=== PATIENT | female | born 2000 | race Caucasian/White ===

== ENCOUNTER → 2020-05-29 | Outpatient (CLI) | payer BC | END | disposition home or self-care (01) | LOC: LABWHC1 06:59 | PROVIDERS: ATTEND Pediatrics Pediatric Infectious Diseases | DX: Z11.59 Encounter for screening for other viral diseases (principal) ==

== ENCOUNTER → 2020-05-30 | Outpatient (CLI) | payer BC | END | disposition home or self-care (01) | LOC: LABWHC1 10:26 | PROVIDERS: ATTEND Pediatrics Pediatric Infectious Diseases | DX: Z11.59 Encounter for screening for other viral diseases (principal) ==

== ENCOUNTER → 2021-07-19 | Outpatient (CLI) | payer MEDICAID | END | disposition home or self-care (01) | LOC: LABWHC1 15:17 | PROVIDERS: ATTEND Emergency Medicine | DX: Z20.822 Contact with and (suspected) exposure to COVID-19 (principal) | CPT/HCPCS: U0003; C9803; U0005 ==

== ENCOUNTER 2021-09-08 08:38 | Emergency (ER) | payer MEDICAID, OTHER ==
[2021-09-08 08:48] VITALS: RESP 18
--- NOTE | 2021-09-08 09:29 | ED ---
Female Urogenital HPI - General Chief complaint: Vaginal Bleeding Stated complaint: 7Wks Preg/Bleeding/Cramping Time Seen by Provider: 09/08/21 08:53 Source: patient, RN notes reviewed, old records reviewed Mode of arrival: ambulatory Limitations: no limitations - History of Present Illness Initial comments: This is a 21-year-old female, proximally 7 weeks based off of last menstrual period she reports that she was to be seen by Dr. Jean this upcoming week. She reports that she noted to have some light brown vaginal discharge on . She reports that the bleeding has increased in this morning she woke with clots. She reports that she has some abdominal cramping but denies significant abdominal tenderness. Patient states she's had no blood work or testing on this . - Related Data Home Medications Medication Instructions Recorded Confirmed Ovf-Vvrk-Ncghw Acid 1 cap PO DAILY 09/08/21 09/08/21 [-U Capsule (formulary)] Allergies Allergy/AdvReac Type Severity Reaction Status Date / Time No Known Allergies Allergy Verified 09/08/21 12:14 Review of Systems ROS Statement: Those systems with pertinent positive or pertinent negative responses have been documented in the HPI. ROS Other: All systems not noted in ROS Statement are negative. Past Medical History Past Medical History: Asthma History of Any Multi-Drug Resistant Organisms: None Reported Past Surgical History: No Surgical Hx Reported Past Psychological History: No Psychological Hx Reported Smoking Status: Never smoker Past Alcohol Use History: None Reported Past Drug Use History: None Reported General Exam - General Exam Comments Initial Comments: Pleasant 21-year-old female. Alert and oriented. Limitations: no limitations General appearance: alert, in no apparent distress Head exam: Present: atraumatic, normocephalic, normal inspection Eye exam: Present: normal appearance, PERRL, EOMI. Absent: scleral icterus, conjunctival injection, periorbital swelling ENT exam: Present: normal exam, mucous membranes moist Neck exam: Present: normal inspection. Absent: tenderness, meningismus, lymphadenopathy Respiratory exam: Present: normal lung sounds bilaterally. Absent: respiratory distress, wheezes, rales, rhonchi, stridor Cardiovascular Exam: Present: regular rate, normal rhythm, normal heart sounds. Absent: systolic murmur, diastolic murmur, rubs, gallop, clicks GI/Abdominal exam: Present: soft, tenderness (pelvic cramping and llq tenderness), normal bowel sounds. Absent: distended, guarding, rebound, rigid External exam: Present: normal external exam Speculum exam: Present: vaginal bleeding (clots, cervix has active bleeding, not dilated. ). Absent: normal speculum exam By manual exam: Present: normal by manual exam Extremities exam: Present: normal inspection, full ROM, normal capillary refill. Absent: tenderness, pedal edema, joint swelling, calf tenderness Back exam: Present: normal inspection Neurological exam: Present: alert, oriented X3, CN II-XII intact Psychiatric exam: Present: normal affect, normal mood Skin exam: Present: warm, dry, intact, normal color. Absent: rash Course Vital Signs 09/08/21 08:44 Temperature 97.9 F Pulse Rate 76 Respiratory 18 Rate Blood Pressure 115/70 O2 Sat by Pulse 100 Oximetry - Reevaluation(s) Reevaluation #1: 09/08/21 12:[address] Romero, recommendation for Beta HCG on Friday, seeing Dr. Jean on 11am friday. Aware of precaution of ectopic . Medical Decision Making - Medical Decision Making 21-year-old female partially 7 weeks with last menstrual period. She presents with vaginal bleeding and passing clots today. Patient has complaints of abdominal cramping and some minimal tenderness on the left side. She has no guarding or rebound tenderness. Cervical hCG is 987. She is Rh+. Ultrasound shows evidence of the left adnexal mass with no color flow measuring 3.3 x 2.3 x 2.07 m. I reviewed the case with Dr. Ramirez and contacted Dr. Romero. He did come to the emergency department to evaluate this Patient as well. Patient will Follow up with OBGYN on Friday AM, with serum HCG drawn early Friday morning. - Lab Data Lab Results 09/08/21 09/08/21 09/08/21 Range/Units 10:27 10: 10: HCG, Quant 983.9 mIU/mL Urine Color Yellow Urine Appearance Clear (Clear) Urine pH 5.5 (5.0-8.0) Ur Specific [place] 1.010 (1.001-1.035) Urine Protein Negative (Negative) Urine Glucose (UA) Negative (Negative) Urine Ketones Negative (Negative) Urine Blood Large H (Negative) Urine Nitrite Negative (Negative) Urine Bilirubin Negative (Negative) Urine Urobilinogen <2.0 (<2.0) mg/dL Ur Leukocyte Esterase Negative (Negative) Urine RBC 27 H (0-5) /hpf Urine WBC 1 (0-5) /hpf Ur Squamous Epith Cells 1 (0-4) /hpf Urine Bacteria Rare H (None) /hpf Urine Mucus Moderate H (None) /hpf Blood Type A Positive Blood Type Recheck No Previous Record Bld Type Recheck Status ABR ONLY - Radiology Data Radiology results: report reviewed Patient's urinalysis shows red blood cells. Disposition Clinical Impression: Vaginal bleeding during , Left ovarian cyst Disposition: HOME SELF-CARE Condition: Good Instructions (If sedation given, give patient instructions): Threatened Miscarriage (ED) Additional Instructions: Patient advised to avoid any heavy lifting, no intercourse and pelvic rest until being evaluated by Dr. Jean on Friday morning at 11 AM. Patient must repeat your serum hormone early in the morning on Friday. Return to emergency department with any worsening abdominal pain. Is patient prescribed a controlled substance at d/c from ED?: No Referrals: Lainey Handley MD [Primary Care Provider] - 1-2 days Danielle Jean DO [Doctor of Osteopathic Medicine] - 1-2 days Jitendra Uriarte MD [STAFF PHYSICIAN] - 1-2 days Time of Disposition: 12:39
[2021-09-08 11:06] LABS: Appearance,Urine Clear (Clear); Bacteria,Urine Rare /hpf; Bilirubin,Urine Negative (Negative); Blood,Urine Large (Negative); Color,Urine Yellow; Glucose,Urine (UA) Negative (Negative); Ketones,Urine Negative (Negative); Leukocyte Esterase,Urine Negative (Negative); Mucus,Urine Moderate /hpf; Nitrite,Urine Negative (Negative); PH, Urine 5.5 (5.0-8.0); Protein,Urine Negative (Negative); RBC,Urine 27 /hpf (0-5); Squamous Epithelial Cell,Urine 1 /hpf (0-4); Urobilinogen,Urine <2.0 mg/dL (<2.0); WBC,Urine 1 /hpf (0-5)
--- NOTE | 2021-09-08 11:45 | US ---
EXAMINATION TYPE: Transabdominal DATE OF EXAM: 09/08/2021 10:17 AM COMPARISON: Ultrasound 03/05/2017 CLINICAL HISTORY: 7 weeks, left abdominal pain, rule out ectopic . ; Vaginal bleeding with clots, pelvic cramping, especially left side. EXAM PERFORMED: Transvaginal (TV) and Transabdominal (TA), endovaginal scanning performed for better evaluation of the uterus and ovaries EXAM MEASUREMENTS: GESTATIONAL AGE / DATING Physician Established: Not yet established Dates by LMP: (7 weeks/1 day) EDC: 04/26/2022 Dates by First Scan: No previous and this is first scan Dates by Current Scan for: No IUP seen on US MATERNAL ANATOMY Uterus: 7.2 x 4.1 x 2.9cm; complex fluid area noted in JALEESA and cervix = 1.1 x 0.3x 0.1cm and may be b lood related to today's history of vaginal bleeding; endometrial thickness = 0.6cm. Right Ovary: 4.0 x 2.0 x 1.9cm Left Ovary: 4.9 x 2.8 x 2.7cm Post CDS: wnl; Presence of free fluid: no Presence of corpus luteal cyst: in right ovary a thick walled cyst is noted = 1.7 x 1.6 x 0.9cm with periphery hypoechoic to ovary. In larger left ovary an oval thick walled cyst is also noted= 3.3 x 2. 2 x 2.0cm with its periphery isoechoic to left ovary. GESTATION / SURVEY: no IUP is seen; enlarged left ovary with thick walled complex oval mass is noted. Date of LMP: 07/20/2021 Beta HcG (if available): No current lab results available at time of US reporting to radiologist. IMPRESSION: Adnexal mass noted on the left is indeterminate, differential includes ectopic although the re is not significant color flow identified, correlate with beta hCG. Thick-walled cystic right ovari an lesion as described.
[2021-09-08 13:27] VITALS: BP 110/70; PULSE 72; TEMP 97.8
--- NOTE | 2021-09-08 14:21 | P.OBCN ---
History of Present Illness Consult date: 09/08/21 Reason for consult: early problem (Vaginal bleeding, cramping) History of present illness: This patient is a pleasant 21 yr female estimated gestational age ~7wks who presents to ER with complaints of vaginal bleeding that started , but became heavier today. Also began having bad menstrual type cramping. Did pass a large clot this morning and uncertain but may have contained tissue. No pelvic pain otherwise. Bleeding has significantly subsided in ER. Past Medical History Past Medical History: Asthma History of Any Multi-Drug Resistant Organisms: None Reported Past Surgical History: No Surgical Hx Reported Past Psychological History: No Psychological Hx Reported Smoking Status: Never smoker Past Alcohol Use History: None Reported Past Drug Use History: None Reported Medications and Allergies Home Medications Medication Instructions Recorded Confirmed Type Pfw-Yhgx-Rjxgz Acid 1 cap PO DAILY 09/08/21 09/08/21 History [-U Capsule (formulary)] Allergies Allergy/AdvReac Type Severity Reaction Status Date / Time No Known Allergies Allergy Verified 09/08/21 12:14 Exam Vital Signs Temp Pulse Resp BP Pulse Ox 09/08/21 13:25 97.8 F 72 18 110/70 99 09/08/21 08:44 97.9 F 76 18 115/70 100 Intake and Output 09/07/21 09/08/21 09/08/21 22:59 06:59 14:59 Other: Weight 64.864 kg - OBG Physical Exam Abdomen: Exam is limited to her abdomen. Abdomen is soft, non-tender. Results Ultrasound and HCG as above. Abnormal Lab Results - Last 24 Hours (Table) 09/08/21 Range/Units 10:27 Urine Blood Large H (Negative) Urine RBC 27 H (0-5) /hpf Urine Bacteria Rare H (None) /hpf Urine Mucus Moderate H (None) /hpf Assessment and Plan Assessment: Patient was seen and examined. I had a long discussion with Susy and her about her bleeding, ultrasound findings, and [facility] (193). At this point this appears to be a complete vs. ectopic . Her bleeding has subsided and she is having no pain. Ultrasound does not demonstrate any free fluid. 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 I asked her to get a repeat HCG in 48hrs (Friday morning) and will f/u in the office immediately thereafter. If HCG is falling significantly, then could just follow HCGs; if not changing or increasing then would consider MTX at that time. I discussed the signs/symptoms of an ectopic including the risks of bleeding, etc I advised to call me this weekend if any concerns, etc. Patient and were agreeable to this plan. (1) Vaginal bleeding during Status: Acute Code(s): O46.90 - ANTEPARTUM HEMORRHAGE, UNSPECIFIED, UNSPECIFIED TRIMESTER SNOMED Code(s): 64444246573178339
== END 2021-09-08 13:26 | disposition home or self-care (01) ==
LOC: EC 08:38
DX: O20.9 Hemorrhage in early pregnancy, unspecified (principal); O34.81 Maternal care for other abnormalities of pelvic organs, first trimester; N83.202 Unspecified ovarian cyst, left side; Z3A.01 Less than 8 weeks gestation of pregnancy
CPT/HCPCS: 36415; 76801; 76817; 81001; 84702; 86900; 86901; 99284

== ENCOUNTER → 2021-09-10 | Outpatient (CLI) | payer OTHER | END | disposition home or self-care (01) | LOC: LABWHC1 07:46 | PROVIDERS: ATTEND Physician Assistant Medical | DX: O20.0 Threatened abortion (principal); Z3A.00 Weeks of gestation of pregnancy not specified | CPT/HCPCS: 36415; 84702 ==

== ENCOUNTER → 2021-12-06 | Outpatient (CLI) | payer OTHER ==
--- NOTE | 2021-12-06 12:00 | XR ---
EXAMINATION TYPE: XR shoulder complete LT, XR humerus LT DATE OF EXAM: 12/06/2021 CLINICAL HISTORY: Pain and limited range of motion. TECHNIQUE: Three views of the left shoulder are obtained. 2 views left humerus. COMPARISON: None. FINDINGS: There is no acute fracture/dislocation evident in the left shoulder. The acromioclavicula r and glenohumeral joint spaces appear within normal limits. The visualized ribs are intact and unre markable. Overlying bra strap. Images of left humerus show no acute fracture or dislocation. Visualized elbow joint appears within n ormal limits. Overlying Soft tissue is unremarkable. IMPRESSION: Unremarkable studies.
== END | disposition home or self-care (01) ==
LOC: RADXRMAIN 11:31
PROVIDERS: ATTEND Emergency Medicine
DX: M25.512 Pain in left shoulder (principal)

== ENCOUNTER → 2022-05-02 | Outpatient (CLI) | payer MEDICAID ==
--- NOTE | 2022-05-02 09:47 | USB ---
Reason for Exam: Clinical finding. Technique: Method: Targeted. Findings: The area of palpable concern of the left breast was scanned. Finding 1: Mass. Laterality: Left. Palpable Abnormality seen. Size 24 x 15 x 21 mm. 3 O'clock Depth: Middle. 5 cm cm from nipple. Shape: Oval. Margin: Circumscribed (Well-Defined or Sharply-Defined). Overall Assessment: Suspicious, BI-RAD 4 Management: Ultrasound Core Biopsy of the left breast. Oval well-circumscribed 2.4 cm solid mass corresponds to palpable abnormality. Strongly favor benign fibroadenoma, advise tissue sampling to confirm. Electronically signed and approved by: Jv Ames M.D.
== END ==
LOC: WWCWWP 07:54
PROVIDERS: ATTEND Surgery
DX: N63.21 Unspecified lump in the left breast, upper outer quadrant (principal)

== ENCOUNTER → 2022-05-06 | Outpatient (CLI) | payer MEDICAID ==
[2022-05-06 07:50] VITALS: BP 127/78; PULSE 69; RESP 17; TEMP 97.9
--- NOTE | 2022-05-06 08:30 | P.GSHP ---
History of Present Illness H&P Date: 05/06/22 Chief Complaint: mass left breast Susy is a 21 year old white female seen in consultation for Dr. Jean regarding a mass in her left breast. The patient states that it has been present for about 4 months. It is located in the left breast in the periareolar area at approximately 1:00. It is tender and she is uncertain if whether it is increased in size. It is more tender near her menstrual cycle. She had an ultrasound performed which revealed a 2.4 cm solid mass corresponding to the palpable abnormality. Ultrasound core biopsy was recommended. Patient does not feel any other lumps masses or nodules of concern in either breast. She has not had any infection or trauma in the breast. She is not complaining of any nipple discharge or skin changes. She has not had any surgery on her breast. She had a miscarriage in August. She was 8 weeks gesta tional age. Patient has been tested for the BRCA1 gene and is negative as her maternal grandmother carried to [place]. Caffeine: 1 cup/day nicotine: none chocolate: occasional hormones: none BCP: none at this time used them for 4 months about 5 years ago Family history: jason grandmother: uterine cancer; BRCA1 + Hormonal history: Menarche: 9 G1M1 LMP: May 01, 2022; regular BCP: none hormones: none Surgical history: none Medical History: possible polycystic ovarian disease Social History: nicotine: none alcohol: none drugs: none - Constitutional Constitutional: Denies chills, Denies fever - EENT Eyes: denies blurred vision, denies pain Ears: bilateral: tinnitus (occasioncal) Ears, nose, mouth and throat: Denies headache, Denies sore throat - Breasts Breasts: bilateral: as per HPI - Cardiovascular Cardiovascular: Denies chest pain, Denies shortness of breath - Respiratory Respiratory: Denies cough, Denies 7 - Gastrointestinal Gastrointestinal: Denies abdominal pain, Denies diarrhea, Denies nausea, Denies vomiting - Genitourinary (Female) Genitourinary: Denies dysuria, Denies hematuria - Menstruation Menstruation: Reports period normal - Musculoskeletal Musculoskeletal: Denies myalgias - Integumentary Integumentary: Denies pruritus, Denies rash - Neurological Neurological: Denies numbness, Denies weakness - Psychiatric Psychiatric: Denies anxiety, Denies depression - Endocrine Endocrine: Denies fatigue, Denies weight change - Hematologic/Lymphatic Comment: none - Allergic/Immunologic Allergic/Immunologic: Reports as per HPI Past Medical History Past Medical History: Asthma History of Any Multi-Drug Resistant Organisms: None Reported Past Surgical History: No Surgical Hx Reported Past Psychological History: No Psychological Hx Reported Smoking Status: Never smoker Past Alcohol Use History: None Reported Past Drug Use History: None Reported Medications and Allergies Home Medications Medication Instructions Recorded Confirmed Type Zgo-Dvtx-Lmnhk Acid 1 cap PO DAILY 09/08/21 05/06/22 History [-U Capsule (formulary)] Allergies Allergy/AdvReac Type Severity Reaction Status Date / Time No Known Allergies Allergy Verified 09/08/21 12:14 Surgical - Exam Vital Signs Temp Pulse Resp BP Pulse Ox 97.9 F 69 17 127/78 97 05/06/22 07:46 05/06/22 07:46 05/06/22 07:46 05/06/22 07:46 05/06/22 07:46 BMI: 27.5 - General no distress - Eyes normal ocular movement - ENT no hearing loss - Neck trachea midline - Respiratory normal respiratory effort, clear to auscultation - Cardiovascular Rhythm: regular Heart Sounds: normal: S1, S2 - Abdomen Abdomen: soft, non tender, no guarding, no rigid, no rebound - Integumentary normal turgor - Neurologic no disoriented, no combative - Musculoskeletal normal gait, normal posture - Psychiatric oriented to time, oriented to person, oriented to place, speech is normal, memory intact Breast Exam: BRA: 34B inspection: Bilateral grade 1 ptosis Palpation: Right breast: Multi-positional exam fibrocystic changes no dominant masses or nodules of concern Axilla: No adenopathy of concern Left breast: Multiple positional exam approximately 2 cm area of nodularity in the periareolar region approximately 1 to 1:30 in the left breast Left axilla: No adenopathy of concern Results Ultrasound results reviewed from 05-02-22 Assessment and Plan Assessment: Impression: Mass left breast corresponding to ultrasound abnormality Fibrocystic breast changes Family history of BRCA1 gene mother and maternal grandmother are positive Plan: Ultrasound core biopsy lesion left breast Follow-up after ultrasound-guided core biopsy CC: Dr. Jean, DR. Handley
== END ==
LOC: WWCWWP 07:34
PROVIDERS: ATTEND Surgery
DX: N63.21 Unspecified lump in the left breast, upper outer quadrant (principal); N60.11 Diffuse cystic mastopathy of right breast; J45.909 Unspecified asthma, uncomplicated

== ENCOUNTER → 2022-05-14 | Day surgery (SDC) | payer MEDICAID ==
[2022-05-14 07:39] VITALS: BP 98/66; PULSE 56; RESP 16; TEMP 98.5
--- NOTE | 2022-05-17 10:18 | USB ---
Pathology Description: Location: 3 o'clock. Needle Type: Mammotome Cores: 4 Gauge: 13 The procedure of ultrasound guided core biopsy was explained to the patient. Benefits, alternatives, and risks were discussed. An informed consent was then obtained. The patient was placed in supine positioning for imaging and for the procedure. The overlying skin was prepped and draped in usual sterile fashion. Lidocaine was used as anesthetic into the skin and subcutaneous tissue up to area of concern in the 3:00 left breast. Under ultrasound guidance, a 13-gauge vacuum-assisted mammotome Elite biopsy gun was used to obtain 5 core samples. No clip was placed after the biopsies due to patient's age and obvious palpable abnormality. The patient tolerated the procedure well without any immediate complication. The patient was kept in the radiology department for short stay after the procedure and then discharged home in stable condition. Impression: Successful, uncomplicated ultrasound guided core biopsy of the 3:00 left breast palpable mass, suspected fibroadenoma. Full pathology results to follow. Pathology Results: Result: Benign, Fibroadenoma. LEFT BREAST, 3:00 POSITION, CORE BIOPSY: Benign fibroadenoma. Overall Assessment: Benign Management: Surgical Consultation of the left breast. Excision can be considered if symptomatic. Electronically signed and approved by: Gareth Posey M.D. Radiologist
== END ==
LOC: RADUSWWP 07:25
PROVIDERS: ATTEND Surgery
DX: D24.2 Benign neoplasm of left breast (principal)
CPT/HCPCS: 88305

== ENCOUNTER → 2022-05-23 | Outpatient (CLI) | payer MEDICAID ==
[2022-05-23 08:35] VITALS: BP 103/69; PULSE 68; RESP 16; TEMP 98.1
--- NOTE | 2022-05-23 08:49 | P.PN ---
Subjective Progress Note Date: 05/23/22 Principal diagnosis: fibroadenoma left breast Susy is a 21 year old white female seen in consultation for Dr. Jean regarding a mass in her left breast. The patient states that it has been present for about 4 months. It is located in the left breast in the periareolar area at approximately 1:00. It is tender and she is uncertain if whether it is increased in size. It is more tender near her menstrual cycle. She had an ultrasound performed which revealed a 2.4 cm solid mass corresponding to the palpable abnormality. Ultrasound core biopsy was recommended. Patient does not feel any other lumps masses or nodules of concern in either breast. She has not had any infection or trauma in the breast. She is not complaining of any nipple discharge or skin changes. She has not had any surgery on her breast. She had a miscarriage in August. She was 8 weeks g estational age. Patient has been tested for the BRCA1 gene and is negative as her maternal grandmother carried BRCA1 gene, and her mother also carries the BRCA1 gene. She underwent an ultrasound core biopsy of the area on . This was a benign fibroadenoma. She tolerated the procedure without any complications. Caffeine: 1 cup/day nicotine: none chocolate: occasional hormones: none BCP: none at this time used them for 4 months about 5 years ago Family history: patricel grandmother: uterine cancer; BRCA1 + Hormonal history: Menarche: 9 G1M1 LMP: May 01, 2022; regular BCP: none hormones: none Surgical history: none Medical History: possible polycystic ovarian disease Social History: nicotine: none alcohol: none drugs: none - Constitutional Constitutional: Denies chills, Denies fever - EENT Eyes: denies blurred vision, denies pain Ears: bilateral: tinnitus (occasioncal) Ears, nose, mouth and throat: Denies headache, Denies sore throat - Breasts Breasts: bilateral: as per HPI - Cardiovascular Cardiovascular: Denies chest pain, Denies shortness of breath - Respiratory Respiratory: Denies cough - Gastrointestinal Gastrointestinal: Denies abdominal pain, Denies diarrhea, Denies nausea, Denies vomiting - Genitourinary (Female) Genitourinary: Denies dysuria, Denies hematuria - Menstruation Menstruation: Reports period normal - Musculoskeletal Musculoskeletal: Denies myalgias - Integumentary Integumentary: Denies pruritus, Denies rash - Neurological Neurological: Denies numbness, Denies weakness - Psychiatric Psychiatric: Denies anxiety, Denies depression - Endocrine Endocrine: Denies fatigue, Denies weight change - Hematologic/Lymphatic Comment: none - Allergic/Immunologic Allergic/Immunologic: Reports as per HPI Objective - Vital Signs Vital signs: Vital Signs Temp 98.1 F 05/23/22 08:31 Pulse 68 05/23/22 08:31 Resp 16 05/23/22 08:31 BP 103/69 05/23/22 08:31 Pulse Ox 100 05/23/22 08:31 FiO2 Intake & Output 05/22/22 05/23/22 05/23/22 18:59 06:59 18:59 Weight 70.307 kg - Exam BMI 26.6 - Constitutional General appearance: Present: cooperative - EENT Eyes: Present: EOMI ENT: Present: hearing grossly normal - Neck Neck: Present: normal ROM - Respiratory Respiratory: bilateral: CTA - Cardiovascular Rhythm: regular Heart sounds: normal: S1, S2 - Gastrointestinal General gastrointestinal: Present: soft - Integumentary Integumentary Comment(s): mild echymosis left breast at biopsy site - Musculoskeletal Musculoskeletal: Present: gait normal - Psychiatric Psychiatric: Present: A&O x's 3, appropriate affect, intact judgment & insight - Additional findings Additional findings: mass left breast UOQ consistent with a fibroadenoma Assessment and Plan Assessment: Impression: Symptomatic fibroadenoma left breast The lesion is increasing in size, causing anxiety, and painful to palpation Plan: Resection symptomatic fibroadenoma left breast Risks and benefits of the procedure include but are not limited to bleeding, infection, reaction to the anesthetic. The risk of recurrence is also discussed. The patient understands that this is not a cancer however secondary to the increased in size and the symptomatic nature she wishes it to be removed. The patient understands and wishes to proceed. CC: Dr Handley
== END ==
LOC: WWCWWP 08:23
PROVIDERS: ATTEND Surgery
DX: D24.2 Benign neoplasm of left breast (principal); F41.9 Anxiety disorder, unspecified; L98.8 Other specified disorders of the skin and subcutaneous tissue

== ENCOUNTER → 2023-01-01 | Outpatient (CLI) | payer MEDICAID ==
--- NOTE | 2023-01-02 07:42 | US ---
EXAMINATION TYPE: US pelvic complete DATE OF EXAM: 01/01/2023 COMPARISON: 09/08/2021 CLINICAL HISTORY: R10.2 PELVIC AND PERINEAL PAIN. PCOS TECHNIQUE: Transabdominal (TA). Transabdominal sonographic images of the pelvis were acquired. EXAM MEASUREMENTS: Uterus: 8.4 x 2.8 x 4.2 cm Endometrial Stripe: .9 cm Right Ovary: 2.5 x 1.8 x 3.8 cm Left Ovary: 3.1 x 1.7 x 2.7 cm 1. Uterus: Anteverted wnl 2. Endometrium: wnl 3. Right Ovary: follicles are present and peripherally located. Evaluation limited by transabdominal only exam. 4. Left Ovary: follicles are present and peripherally located. Evaluation limited by transabdominal only exam. 5. Bilateral Adnexa: wnl 6. Posterior cul-de-sac: wnl IMPRESSION: 1. No evidence for acute process. 2. Peripherally oriented follicles bilaterally which are suboptimally evaluated on transabdominal on ly imaging. Findings could represent PCOS morphology. Clinical correlation advised.
== END | disposition home or self-care (01) ==
LOC: RADUSWWP 16:14
PROVIDERS: ATTEND Obstetrics & Gynecology
DX: E28.2 Polycystic ovarian syndrome (principal); R10.2 Pelvic and perineal pain
CPT/HCPCS: 76856

== ENCOUNTER → 2023-02-21 | Outpatient (CLI) | payer MEDICAID ==
[2023-02-21 08:52] VITALS: BP 102/65; PULSE 67; RESP 16; TEMP 98.3
--- NOTE | 2023-02-21 09:00 | P.PN ---
Subjective Progress Note Date: 02/21/23 Principal diagnosis: left breast fibroadenoma fibroadenoma left breast Susy is a 22 year old white female seen initially in consultation for Dr. Jean regarding a mass in her left breast. It was located in the left breast in the periareolar area at approximately 1:00. It is tender and she is uncertain if whether it is increased in size. It is more tender near her menstrual cycle. She had an ultrasound performed of the left breast which was limited on , this revealed a 2.4 cm solid mass corresponding to the palpable abnormality. Ultrasound core biopsy was recommended. Patient did not feel any other lumps masses or nodules of concern in either breast. She had not had any infection or trauma in the breast. She was not complaining of any nipple discharge or skin changes. She had not had any surgery on her breast. She had a miscarriage in August,. She was 8 weeks gestational age. Patient has been tested for the BRCA1 gene and is negative as her maternal grandmother carried BRCA1 gene, and her mother also carries the BRCA1 gene. She underwent an ultrasound core biopsy of the area on . This was a benign fibroadenoma. She tolerated the procedure without any complications. She states that the area of the fibroadenoma is very tender to palpation. It gets larger right before her menstrual cycle. Caffeine: 1 cup/day nicotine: none chocolate: occasional hormones: none BCP: none at this time used them for 4 months about 5 years ago Family history: maternal grandmother: uterine cancer; BRCA1 + Hormonal history: Menarche: 9 G1M1 LMP: May 01, 2022; regular BCP: none hormones: none Surgical history: none Medical History: possible polycystic ovarian disease, started metformin Social History: nicotine: none alcohol: none drugs: none - Constitutional Constitutional: Denies chills, Denies fever - EENT Eyes: denies blurred vision, denies pain Ears: bilateral: tinnitus (occasioncal) Ears, nose, mouth and throat: Denies headache, Denies sore throat - Breasts Breasts: bilateral: as per HPI - Cardiovascular Cardiovascular: Denies chest pain, Denies shortness of breath - Respiratory Respiratory: Denies cough - Gastrointestinal Gastrointestinal: Denies abdominal pain, Denies diarrhea, Denies nausea, Denies vomiting - Genitourinary (Female) Genitourinary: Denies dysuria, Denies hematuria - Menstruation Menstruation: Reports period normal - Musculoskeletal Musculoskeletal: Denies myalgias - Integumentary Integumentary: Denies pruritus, Denies rash - Neurological Neurological: Denies numbness, Denies weakness - Psychiatric Psychiatric: Denies anxiety, Denies depression - Endocrine Endocrine: Denies fatigue, Denies weight change - Hematologic/Lymphatic Comment: none - Allergic/Immunologic Allergic/Immunologic: Reports as per HPI Objective - Constitutional General appearance: Present: cooperative - EENT Eyes: Present: EOMI ENT: Present: hearing grossly normal - Neck Neck: Present: normal ROM - Respiratory Respiratory: bilateral: CTA - Cardiovascular Rhythm: regular Heart sounds: normal: S1, S2 - Gastrointestinal General gastrointestinal: Present: soft - Integumentary Integumentary: Present: normal turgor - Musculoskeletal Musculoskeletal: Present: gait normal - Psychiatric Psychiatric: Present: A&O x's 3, appropriate affect, intact judgment & insight - Additional findings Additional findings: Breast Exam: Inspection: Bilateral grade 1 ptosis Palpation: Right breast: Multiple positional exam fibrocystic changes no dominant masses or nodules of concern Right axilla: No adenopathy of concern Left breast: Multiple positional exam approximately 2 cm area of nodularity in the periareolar region 1 to 1:30 in the left breast no other dominant masses or nodules of concern Left axilla: No adenopathy of concern Assessment and Plan Assessment: Impression: symptomatic left breast fibroadenoma Plan: Bilateral breast ultrasound Resection of symptomatic left breast fibroadenoma in the operating room with possible onco-plastic tissue transfer CC: Dr. Handley
== END ==
LOC: WWCWWP 08:37
PROVIDERS: ATTEND Surgery
DX: D24.2 Benign neoplasm of left breast (principal)

== ENCOUNTER → 2023-02-21 | Outpatient (CLI) | payer MEDICAID ==
--- NOTE | 2023-02-21 09:46 | USB ---
Reason for Exam: Hx of benign breast biopsy. Patient History: 05/14/2022, Benign US biopsy breast VAD LT on the left side. Prior Study Comparison: 05/02/2022 Left US breast LT, [facility]. Findings: The whole breast of both breasts, the axilla of both breasts and the retroareolar of both breasts were scanned. Solid mass left 2:00 position is noted measuring 2.6 x 1.8 cm which has been biopsied previously and is consistent with fibroadenoma.. Overall Assessment: Benign, BI-RAD 2 Management: Screening Mammogram of both breasts at age 38. A clinical breast exam by your physician is recommended on an annual basis and results should be correlated with mammographic findings. This exam should not preclude additional follow-up of suspicious palpable abnormalities. Results were given to the patient verbally at the time of exam. Electronically signed and approved by: Leonidas Garcia M.D. Radiologis
== END | disposition home or self-care (01) ==
LOC: RADUSWWP 09:05
PROVIDERS: ATTEND Surgery
DX: R92.8 Other abnormal and inconclusive findings on diagnostic imaging of breast (principal)

== ENCOUNTER → 2023-03-04 | Day surgery (SDC) | payer MEDICAID ==
[2023-03-03 08:27] VITALS: BMI 29.7
[~2023-03-04] MED LIST: DEXAMETHASONE SOD PHOSPHATE 4 MG/ML 1 ML VIAL IV ONE; GLYCOPYRROLATE 0.2 MG/ML 2 ML VIAL ONE; HEPARIN SODIUM,PORCINE/PF 5,000 UNIT/0.5 ML SYRINGE SQ PRN; KETOROLAC 15 MG/ML 1 ML VIAL ONE; LACTATED RINGERS 1,000 ML IV SCH; LIDOCAINE 1% (10MG/ML) FOR IV START INTRADERMA PRN; LIDOCAINE 2% INJ 20 MG/ML (2 ML VIAL) ONE; METOCLOPRAMIDE 5 MG/ML 2 ML VIAL IVP ONE; METOCLOPRAMIDE 5 MG/ML 2 ML VIAL ONE; MIDAZOLAM 2 MG/2 ML VIAL IV PRN; MIDAZOLAM 2 MG/2 ML VIAL ONE; ONDANSETRON 4 MG/2 ML VIAL IVP ONE; ONDANSETRON 4 MG/2 ML VIAL ONE; PROPOFOL 10 MG/ML 20 ML VIAL IV ONE; fentaNYL (PF) 50 MCG/ML 2 ML AMP ONE
[2023-03-04 07:36] VITALS: TEMP 98.2
--- NOTE | 2023-03-04 09:10 | P.OP ---
Date of Procedure: 03/04/23 Preoperative Diagnosis: Symptomatic fibroadenoma left breast Postoperative Diagnosis: Same Procedure(s) Performed: Wide excision symptomatic fibroadenoma left breast Anesthesia: LIBIAA Surgeon: Lucie Santamaria Estimated Blood Loss (ml): 3 IV fluids (ml): 300 Pathology: other (Fibroadenoma/breast tissue) Condition: stable Disposition: same day Indications for Procedure: Symptomatic fibroadenoma left breast Operative Findings: Fibroadenoma left breast/and very dense breast tissue Description of Procedure: The patient was brought to the operating room. Following induction of anesthesia the left breast was prepped and draped in a sterile fashion. An incision was made over the palpable abnormality in the left breast. This was carried down through the skin and subcutaneous tissue to the fibroadenoma. Circumferential resection was performed. The lesion was approximately 2-1/2 cm in size. The breast tissue surrounding this was very dense. The specimen was removed and painted for orientation. The wound was irrigated. Hemostasis was attained using electrocautery device as well as the Harmonic scalpel. A titanium clip was placed at the area of resection. The deep tissues were closed using 3-0 Vicryl suture. The skin was closed using 4-0 Monocryl. Steri-Strips were applied. The patient tolerated the procedure in stable condition.
--- NOTE | 2023-03-04 09:11 | P.DS ---
Providers Attending physician: Lucie Santamaria Primary care physician: Lainey Handley Plan - Discharge Summary Discharge Rx Participant: No New Discharge Prescriptions: No Action Pml-Eyfr-Oqiaq Acid [-U Capsule (formulary)] 1 cap PO DAILY metFORMIN HCL 500 mg PO DAILY Discharge Medication List Buy-Rooa-Xjbjd Acid [-U Capsule (formulary)] 1 cap PO DAILY 09/08/21 [History] metFORMIN HCL 500 mg PO DAILY 02/21/23 [History] Follow up Appointment(s)/Referral(s): Lucie Santamaria MD [STAFF PHYSICIAN] - 03/13/23 8:40 am Activity/Diet/Wound Care/Special Instructions: do not drive for 24 hours from discharge wear bra at all times may shower after 48 hours Discharge Disposition: HOME SELF-CARE
[2023-03-04] MEDS: HYDROmorphone 0.5 MG/0.5 ML SYRINGE IVP PRN ×2 (09:21→09:40)
[2023-03-04 10:10] VITALS: RESP 16
[2023-03-04 11:57] VITALS: BP 118/60; PULSE 59
== END | disposition home or self-care (01) ==
LOC: OR 07:07
PROVIDERS: ATTEND Surgery
DX: D24.2 Benign neoplasm of left breast (principal); J45.909 Unspecified asthma, uncomplicated; Z79.84 Long term (current) use of oral hypoglycemic drugs; Z79.899 Other long term (current) drug therapy
CPT/HCPCS: 81025; 88307; 19120; J2250; J1100; J2765; J0690; J2405; J3010; J1885; J2704; J1170; J1644; J2001

== ENCOUNTER → 2023-03-21 | Outpatient (CLI) | payer MEDICAID ==
--- NOTE | 2023-03-21 08:30 | P.PN ---
Progress Note - Text Progress Note Date: 03/21/23 Susy is a 22 year old white female status post resection of fiboradenoma from the left breast on 4422. She tolerated the procedure without difficulty. Did have some postoperative nausea. Examination: Lungs: Clear Heart: Regular rate and rhythm Incision: Clean and dry Impression: Status post resection fibroadenoma left breast Plan: Left breast ultrasound in 6 months with physician exam at that time CC: Dr. Handley
== END ==
LOC: WWCWWP 08:17
PROVIDERS: ATTEND Surgery
DX: N60.22 Fibroadenosis of left breast (principal)

== ENCOUNTER → 2023-05-12 | Outpatient (CLI) | payer MEDICAID | END | disposition home or self-care (01) | LOC: LABWHC1 11:20 | PROVIDERS: ATTEND Obstetrics & Gynecology | DX: O20.0 Threatened abortion (principal); Z3A.00 Weeks of gestation of pregnancy not specified | CPT/HCPCS: 36415; 84702 ==

== ENCOUNTER → 2023-05-14 | Outpatient (CLI) | payer MEDICAID | END | disposition home or self-care (01) | LOC: LABWHC1 09:18 | PROVIDERS: ATTEND Obstetrics & Gynecology | DX: O20.0 Threatened abortion (principal); Z3A.00 Weeks of gestation of pregnancy not specified | CPT/HCPCS: 36415; 84702 ==

== ENCOUNTER → 2023-05-26 | Outpatient (CLI) | payer MEDICAID ==
--- NOTE | 2023-05-26 10:20 | US ---
EXAMINATION TYPE: Transabdominal DATE OF EXAM: 05/26/2023 10:00 AM COMPARISON: OB ultrasound 09/08/2021, pelvic ultrasound 01/01/2023 CLINICAL INDICATION: Female, 22 years old with history of O46.91 BLEEDING/SPOTTING; confirm dates spo tting EXAM PERFORMED: Transvaginal (TV) and Transabdominal (TA) EXAM MEASUREMENTS: GESTATIONAL AGE / DATING Physician Established: Not yet established Dates by LMP: (6 weeks/5 days) EDC: 01/14/2024 Dates by First Scan: No previous this is first scan Dates by Current Scan for: (6 weeks/1 days) EDC: 01/18/2024 MATERNAL ANATOMY Uterus: 9.2 x 4.2 x 4.7 cm Right Ovary: 4.3 x 2.5 x 3.5 cm Left Ovary: 3.2 x 1.9 x 2.7 cm Post CDS / Adnexa: wnl Presence of free fluid: no Presence of corpus luteal cyst: yes right Presence of subchorionic bleed: yes .4 x .3 x .6 cm. GESTATION / SURVEY CRL: 0.37 cm (6 weeks/1 days) Yolk Sac (normal less than 6mm): 3 mm Heart Rate: 116 bpm Rhythm: Normal IUP: Viable IUP Beta HcG (if available): Not available at this time Single live intrauterine gestation. IMPRESSION: 1. Single live intrauterine gestation with estimated gestational age of 6 weeks 1 day with estimated due date of 01/18/2024. 2. Small subchorionic hemorrhage. Close clinical surveillance is recommended.
== END | disposition home or self-care (01) ==
LOC: RADUSWWP 09:26
PROVIDERS: ATTEND Obstetrics & Gynecology
DX: O20.8 Other hemorrhage in early pregnancy (principal); Z3A.01 Less than 8 weeks gestation of pregnancy
CPT/HCPCS: 76801; 76817

== ENCOUNTER → 2023-06-09 | Outpatient (CLI) | payer MEDICAID ==
[2023-06-10 02:25] LABS: HCT 42.9 % (37.2-46.3); HGB 14.4 d/dL (12.0-15.0); MCH 32.5 pg (27.0-32.0); MCHC 33.6 d/dL (32.0-37.0); MCV 96.8 FL (80.0-97.0); Mean Platelet Volume 11.3 FL (9.5-12.2); NRBC Per 100 WBC 0 X 10*3/uL (0.00-0.01); Platelet Count 249 X 10*3/uL (140-440); RBC 4.43 X 10*6/uL (4.10-5.20); RDW 12.1 % (11.5-14.5); WBC 9.17 X 10*3/uL (4.50-10.00)
[2023-06-10 02:33] LABS: Glucose 72 mg/dL (70-110)
[2023-06-10 02:59] LABS: Hepatitis B Surface Antigen Nonreactive; Hepatitis C IgG Antibody Nonreactive
[2023-06-10 03:39] LABS: HIV 2 AB Non-Reactive (Non-Reactive); HIV AB P24 Non-Reactive (Non-Reactive); HIV P24 AG Non-Reactive (Non-Reactive)
[2023-06-10 05:52] LABS: Toxoplasma Antibody (IgG) <3.0 IU/mL (<7.2); Toxoplasma Antibody (IgM) <3.0 AU/mL (<8.0)
== END | disposition home or self-care (01) ==
LOC: LABWHC1 15:29
PROVIDERS: ATTEND Obstetrics & Gynecology
DX: Z34.81 Encounter for supervision of other normal pregnancy, first trimester (principal); Z3A.00 Weeks of gestation of pregnancy not specified; R53.83 Other fatigue
CPT/HCPCS: 36415; 82565; 82947; 85027; 86762; 86777; 86778; 86780; 86803; 86850; 86900; 86901; 87340; 87390

== ENCOUNTER 2023-06-10 09:55 | Emergency (ER) | payer MEDICAID ==
[2023-06-10 10:10] VITALS: TEMP 98.6
[2023-06-10] MEDS ORDERED: diphenhydrAMINE 50 MG/ML 1 ML VIAL IVP STA (10:27)
[2023-06-10] MEDS ORDERED: METOCLOPRAMIDE 5 MG/ML 2 ML VIAL IVP STA (10:27)
[2023-06-10] MEDS ORDERED: SODIUM CHLORIDE 0.9% 2,000 ML IV STA (10:27)
--- NOTE | 2023-06-10 10:48 | ED ---
General Adult HPI - General Chief complaint: Nausea/Vomiting/Diarrhea Stated complaint: vomiting,9wk preg Time Seen by Provider: 06/10/23 10:26 Source: patient, RN notes reviewed Mode of arrival: ambulatory Limitations: no limitations - History of Present Illness Initial comments: 22-year-old female presents emergency department to complaint of nausea vomiting in . 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 Patient denies any vaginal bleeding abdominal cramping. Patient states that the nausea has been increasing over the last couple weeks. Patient states that her normal ultrasound showing IUP. Patient offers no other complaints. - Related Data Home Medications Medication Instructions Recorded Confirmed Fwl-Dtca-Dkldq Acid 1 cap PO DAILY 09/08/21 03/04/23 [-U Capsule (formulary)] metFORMIN HCL 500 mg PO DAILY 02/21/23 03/04/23 Previous Rx's Medication Instructions Recorded HYDROcodone/APAP 5-325MG [[place] 5] 1 - 2 each PO Q4H PRN #10 tab 03/04/23 Allergies Allergy/AdvReac Type Severity Reaction Status Date / Time No Known Allergies Allergy Verified 06/10/23 10:06 Review of Systems ROS Statement: Those systems with pertinent positive or pertinent negative responses have been documented in the HPI. ROS Other: All systems not noted in ROS Statement are negative. Past Medical History Past Medical History: Asthma History of Any Multi-Drug Resistant Organisms: None Reported Past Surgical History: No Surgical Hx Reported Additional Past Surgical History / Comment(s): left breast lump removal Past Anesthesia/Blood Transfusion Reactions: No Reported Reaction Past Psychological History: No Psychological Hx Reported Smoking Status: Never smoker Past Alcohol Use History: None Reported Past Drug Use History: None Reported General Exam Limitations: no limitations General appearance: alert, in no apparent distress Head exam: Present: atraumatic, normocephalic, normal inspection Respiratory exam: Present: normal lung sounds bilaterally. Absent: respiratory distress, wheezes, rales, rhonchi, stridor Cardiovascular Exam: Present: regular rate, normal rhythm, normal heart sounds. Absent: systolic murmur, diastolic murmur, rubs, gallop, clicks GI/Abdominal exam: Present: soft, normal bowel sounds. Absent: distended, tenderness, guarding, rebound, rigid Course Vital Signs 06/10/23 06/10/23 10:07 12:54 Temperature 98.6 F 98.6 F Pulse Rate 86 81 Respiratory 18 16 Rate Blood Pressure 109/85 117/70 O2 Sat by Pulse 98 100 Oximetry Medical Decision Making - Medical Decision Making Was pt. sent in by a medical professional or institution (, JENARO, DUAL RATE SUPERVISOR, urgent care, hospital, or detention...) When possible be specific @ -No Did you speak to anyone other than the patient for history (EMS, parent, family, police, friend...)? What history was obtained from this source @ -No Did you review nursing and triage notes (agree or disagree)? Why? @ -I reviewed and agree with nursing and triage notes Were old charts reviewed (outside hosp., previous admission, EMS record, old EKG, old radiological studies, urgent care reports/EKG's, detention records)? Report findings @ -No old charts were reviewed Differential Diagnosis (chest pain, altered mental status, abdominal pain women, abdominal pain men, vaginal bleeding, weakness, fever, dyspnea, syncope, headache, dizziness, GI bleed, back pain, seizure, CVA, palpatations, mental health, musculoskeletal)? @ -Nausea vomiting , dehydration, gastroenteritis EKG interpreted by me (3pts min.). @ -As above X-rays interpreted by me (1pt min.). @ -None done CT interpreted by me (1pt min.). @ -None done U/S interpreted by me (1pt. min.). @ -None done What testing was considered but not performed or refused? (CT, X-rays, U/S, labs)? Why? @ -None What meds were considered but not given or refused? Why? @ -None Did you discuss the management of the patient with other professionals (professionals i.e. JENARO Ivy, DUAL RATE SUPERVISOR, lab, RT, psych nurse, hospice social worker, scrap charger, teacher, audit officer, rn case manager)? Give summary @ -No Was smoking cessation discussed for >3mins.? @ -No Was critical care preformed (if so, how long)? @ -No Were there social determinants of health that impacted care today? How? (Homelessness, low income, unemployed, alcoholism, drug addiction, transportation, low edu. Level, literacy, decrease access to med. care, group home, rehab)? @ -No Was there de-escalation of care discussed even if they declined (Discuss DNR or withdrawal of care, Hospice)? DNR status @ -No What co-morbidities impacted this encounter? (DM, HTN, Smoking, COPD, CAD, Cancer, CVA, ARF, Chemo, Hep., AIDS, mental health diagnosis, sleep apnea, morbid obesity)? @ -None Was patient admitted / discharged? Hospital course, mention meds given and route, prescriptions, significant lab abnormalities, going to OR and other pertinent info. @ -Discharge patient is improved after IV fluids and antiemetics patient showed signs of dehydration patient feels comfortable discharge and close follow-up with ELEMENTARY SPECIAL EDUCATION TEACHER. hospital course Undiagnosed new problem with uncertain prognosis? @ -No Drug Therapy requiring intensive monitoring for toxicity (Heparin, Nitro, Insulin, Cardizem)? @ -No Were any procedures done? @ -No Diagnosis/symptom? @ -Nausea vomiting , dehydration Acute, or Chronic, or Acute on Chronic? @ -Acute Uncomplicated (without systemic symptoms) or Complicated (systemic symptoms)? @ -Uncomplicated Side effects of treatment? @ -No Exacerbation, Progression, or Severe Exacerbation? @ -No Poses a threat to life or bodily function? How? (Chest pain, [place], [place], pneumonia, PE, COPD, DKA, ARF, appy, cholecystitis, CVA, Diverticulitis, Homicidal, Suicidal, threat to staff... and all critical care pts) @ -No - Lab Data Result diagrams: 06/10/23 10:33 06/10/23 10:33 Lab Results 06/10/23 06/10/23 06/10/23 Range/Units 10:33 10:33 10:33 WBC 9.0 (3.8-10.6) k/uL RBC 4.39 (3.80-5.40) m/uL Hgb 14.2 (11.4-16.0) gm/dL Hct 42.4 (34.0-46.0) % MCV 96.7 (80.0-100.0) fL MCH 32.4 (25.0-35.0) pg MCHC 33.5 (31.0-37.0) g/dL RDW 12.0 (11.5-15.5) % Plt Count 230 (150-450) k/uL MPV 8.4 Neutrophils % 72 % Lymphocytes % 19 % Monocytes % 6 % Eosinophils % 1 % Basophils % 0 % Neutrophils # 6.5 (1.3-7.7) k/uL Lymphocytes # 1.7 (1.0-4.8) k/uL Monocytes # 0.5 (0-1.0) k/uL Eosinophils # 0.1 (0-0.7) k/uL Basophils # 0.0 (0-0.2) k/uL Sodium 138 (137-145) mmol/L Potassium 4.2 (3.5-5.1) mmol/L Chloride 103 (98-107) mmol/L Carbon Dioxide 19 L (22-30) mmol/L Anion Gap 16 mmol/L BUN 10 (7-17) mg/dL Creatinine 0.48 L (0.52-1.04) mg/dL Est GFR (CKD-EPI)AfAm >90 (>60 ml/min/1.73 sqM) Est GFR (CKD-EPI)NonAf >90 (>60 ml/min/1.73 sqM) Glucose 79 (74-99) mg/dL Calcium 9.6 (8.4-10.2) mg/dL Total Bilirubin 0.7 (0.2-1.3) mg/dL AST 26 (14-36) U/L ALT 16 (4-34) U/L Alkaline Phosphatase 56 (38-126) U/L Total Protein 7.7 (6.3-8.2) g/dL Albumin 4.7 (3.5-5.0) g/dL Urine Color Yellow Urine Appearance Clear (Clear) Urine pH 6.0 (5.0-8.0) Ur Specific [place] 1.031 (1.001-1.035) Urine Protein 1+ H (Negative) Urine Glucose (UA) Negative (Negative) Urine Ketones 4+ H (Negative) Urine Blood Negative (Negative) Urine Nitrite Negative (Negative) Urine Bilirubin Negative (Negative) Urine Urobilinogen 2.0 (<2.0) mg/dL Ur Leukocyte Esterase Negative (Negative) Urine RBC 2 (0-5) /hpf Urine WBC 1 (0-5) /hpf Ur Squamous Epith Cells 4 (0-4) /hpf Urine Bacteria Occasional H (None) /hpf Urine Mucus Moderate H (None) /hpf Disposition Clinical Impression: Nausea/vomiting in Disposition: HOME SELF-CARE Condition: Stable Instructions (If sedation given, give patient instructions): Nausea and Vomiting in (ED) Additional Instructions: Please return to the Emergency Department if symptoms worsen or any other concerns. Is patient prescribed a controlled substance at d/c from ED?: No Referrals: Lainey Handley MD [Primary Care Provider] - 1-2 days Time of Disposition: 12:34
[2023-06-10 10:56] LABS: Basophils % (A) 0 %; Eosinophils # (A) 0.1 k/uL (0-0.7); Eosinophils % (A) 1 %; HCT 42.4 % (34.0-46.0); HGB 14.2 gm/dL (11.4-16.0); Lymphocytes # (A) 1.7 k/uL (1.0-4.8); Lymphocytes % (A) 19 %; MCH 32.4 pg (25.0-35.0); MCHC 33.5 g/dL (31.0-37.0); MCV 96.7 fL (80.0-100.0); Mean Platelet Volume 8.4; Monocytes # (A) 0.5 k/uL (0-1.0); Monocytes % (A) 6 %; Neutrophils # (A) 6.5 k/uL (1.3-7.7); Neutrophils % (A) 72 %; Platelet Count 230 k/uL (150-450); RBC 4.39 m/uL (3.80-5.40)
[2023-06-10 11:23] LABS: ALT 16 U/L (4-34); AST 26 U/L (14-36); African American GFR (CKD) >90 (>60 ml/min/1.73 sqM); Albumin 4.7 g/dL (3.5-5.0); Alkaline Phosphatase 56 U/L (38-126); Anion Gap 16 mmol/L; Blood Urea Nitrogen 10 mg/dL (7-17); Calcium 9.6 mg/dL (8.4-10.2); Carbon Dioxide 19 mmol/L (22-30); Chloride 103 mmol/L (98-107); Glucose 79 mg/dL (74-99); Non-African American GFR(CKD) >90 (>60 ml/min/1.73 sqM); Potassium 4.2 mmol/L (3.5-5.1); Sodium 138 mmol/L (137-145); Total Bilirubin 0.7 mg/dL (0.2-1.3); Total Protein 7.7 g/dL (6.3-8.2)
[2023-06-10 12:33] LABS: Appearance,Urine Clear (Clear); Bacteria,Urine Occasional /hpf; Bilirubin,Urine Negative (Negative); Blood,Urine Negative (Negative); Color,Urine Yellow; Glucose,Urine (UA) Negative (Negative); Ketones,Urine 4+ (Negative); Leukocyte Esterase,Urine Negative (Negative); Mucus,Urine Moderate /hpf; Nitrite,Urine Negative (Negative); Protein,Urine 1+ (Negative); RBC,Urine 2 /hpf (0-5); Specific Gravity,Urine 1.031 (1.001-1.035); Squamous Epithelial Cell,Urine 4 /hpf (0-4); WBC,Urine 1 /hpf (0-5)
[2023-06-10 12:55] VITALS: BP 117/70; PULSE 81; RESP 16
== END 2023-06-10 12:55 | disposition home or self-care (01) ==
LOC: EC 09:55
DX: O21.9 Vomiting of pregnancy, unspecified (principal); O99.281 Endocrine, nutritional and metabolic diseases complicating pregnancy, first trimester; E86.0 Dehydration; O99.511 Diseases of the respiratory system complicating pregnancy, first trimester; J45.909 Unspecified asthma, uncomplicated; Z3A.09 9 weeks gestation of pregnancy
CPT/HCPCS: 36415; 80053; 85025; 81001; 99284; 96374; 96375; 96361; J1200; J2765

== ENCOUNTER → 2023-06-12 | Outpatient (CLI) | payer MEDICAID ==
--- NOTE | 2023-06-12 20:00 | US ---
EXAMINATION TYPE: Ultrasound OB <= 14 week fetus DATE OF EXAM: 06/12/2023 2:20 PM COMPARISON: NONE CLINICAL INDICATION: Female, 22 years old with history of O46.91 ANTEPARTUM HEMORRHAGE, UNSPECIFIED, FIRST T; small subchorionic bleed EXAM PERFORMED: Transabdominal (TA) EXAM MEASUREMENTS: GESTATIONAL AGE / DATING Physician Established: (8 weeks/4 days) EDC: 01/18/2024 Dates by LMP: (8 weeks/4 days) EDC: 01/18/2024 Dates by First Scan: (6 weeks/5 days) EDC: 01/14/2024 Dates by Current Scan for: (7 weeks/5 days) EDC: 01/24/2024 MATERNAL ANATOMY Uterus: 12.2 x 4.8 x 6.1cm Right Ovary: 2.9 x 2.5 x 2.5 cm Left Ovary: 2.5 x 1.9 x 2.4 cm Post CDS / Adnexa: wnl Presence of free fluid: no Presence of corpus luteal cyst: no Presence of subchorionic bleed: small area .7 x .6 cm. GESTATION / SURVEY CRL: 1.3 cm (7 weeks/5 days) Yolk Sac (normal less than 6mm): 4 mm Heart Rate: 163 bpm Rhythm: normal IUP: single IMPRESSION: 1. A small perigestational bleed is similar to slightly larger at 7 x 6 mm versus 6 x 4 mm, previousl y. 2. Single live intrauterine with gestational age of 7 weeks 5 days by CRL. 6 days less grow th than expected compared to 05/26/2023. On a short-term follow-up can be considered. 3. Complete survey recommended at 18-20 weeks.
== END | disposition home or self-care (01) ==
LOC: RADUSWWP 13:29
PROVIDERS: ATTEND Obstetrics & Gynecology
DX: O46.91 Antepartum hemorrhage, unspecified, first trimester (principal); Z3A.01 Less than 8 weeks gestation of pregnancy
CPT/HCPCS: 76801

== ENCOUNTER → 2023-08-20 | Outpatient (CLI) | payer MEDICAID ==
--- NOTE | 2023-08-20 20:16 | US ---
EXAMINATION TYPE: US OB >= 14 wk fetus DATE OF EXAM: 08/20/2023 COMPARISON: 06/12/2023 CLINICAL INDICATION: Female, 22 years old with history of O36.67E0KOLVHGWA CARE FOR EXCESS GROW TH, SEC; growth, A1 TECHNIQUE: OBTA GESTATIONAL AGE / DATING Physician Established: (19 weeks/0 days) EDC: 01/14/2024 Dates by LMP: (18 weeks/3 days) EDC: 01/18/2024 Dates by First Scan: (19 weeks/0 days) EDC: 01/14/2024 Dates by Current Scan: (19 weeks/1 days) EDC: 01/13/2024 SURVEY IUP: Single PLACENTA: Posterior-fundal PREVIA: No Previa BON: 17.2 cm Normal CERVICAL LENGTH (transabdominal: norm > 3.0cm): 3.9 cm BIOMETRY PRESENTATION: Vertex LIE: Longitudinal BPD: 4.3 cm 19 weeks / 1 days HC: 16.2 cm 19 weeks / 0 days AC: 14.9 cm 20 weeks / 2 days FL: 2.6 cm 18 weeks / 0 days ESTIMATED WEIGHT IN GRAMS: 274 grams ESTIMATED WEIGHT IN LBS/OZ: 0 lbs. 10 oz. WEIGHT PERCENTAGE BASED ON ESTABLISHED DATES: 51% HC/AC: 1.1 Normal FL/AC: 17 Normal HEART RATE: 142 bpm RHYTHM: Normal IMPRESSION: Single live intrauterine gestation with ultrasound age 19 weeks 1 day. Additional information as desc ribed above.
== END | disposition home or self-care (01) ==
LOC: RADUSWWP 16:07
PROVIDERS: ATTEND Obstetrics & Gynecology
DX: O36.62X0 Maternal care for excessive fetal growth, second trimester, not applicable or unspecified (principal); Z3A.19 19 weeks gestation of pregnancy
CPT/HCPCS: 76805

== ENCOUNTER → 2023-09-16 | Outpatient (CLI) | payer MEDICAID ==
--- NOTE | 2023-09-17 07:39 | US ---
EXAMINATION TYPE: US OB anatomy transabd DATE OF EXAM: 09/16/2023 COMPARISON: NONE CLINICAL INDICATION: Female, 23 years old with history of O36.62X0; ANATOMY EXAM, G1 TECHNIQUE: OBTA EXAM MEASUREMENTS: GESTATIONAL AGE / DATING Physician Established: (22 weeks/1 days) EDC: 01/14/2024 Dates by LMP: (22 weeks/1 days) EDC: 01/14/2024 Dates by First Scan: (22 weeks/2 days) EDC: 01/18/2024 Dates by Current Scan for: (22 weeks/1 days) EDC: 01/19/2024 SURVEY IUP: Single PLACENTA: Fundal PREVIA: No previa BON: 14.4 cm Normal CERVICAL LENGTH (transabdominal: norm > 3.0cm): 3.9 cm BIOMETRY PRESENTATION: Variable LIE: Transverse lie with head maternal R BPD: 5.3 cm 22 weeks / 2 days HC: 19.1 cm 21 weeks / 3 days AC: 17.8 cm 22 weeks / 5 days FL: 3.8 cm 22 weeks / 1 days ESTIMATED WEIGHT IN GRAMS: 490 grams ESTIMATED WEIGHT IN LBS/OZ: 1 lbs. 1 oz. WEIGHT PERCENTAGE BASED ON ESTABLISHED DATE: 18 % HC/AC: 1.0 Normal FL/AC: 21 Normal HEART RATE: 143 bpm RHYTHM: Normal ANATOMY SEEN (within normal limits): * Lateral Vent (< 1 cm) 0.4 cm * Cisterna Magna (< 1.1 cm) 0.3 cm * Nuchal Fold (< 0.6 cm) 0.3 cm * Cerebellum (varies with age) 25.2 cm Choroid Plexus (bilateral) Midline Falx Cavus Septi Pellucidi Outflow tracts: LVOT/RVOT Stomach Situs Nose / Lips Diaphragm Kidneys (bilateral) Bladder Cord Insert Three Vessel Cord Arms (bilateral) Legs (bilateral) ANATOMY NOT SEEN: Patient will return within 2 weeks to complete anatomy Four Chamber Heart Longitudinal Spine Transverse Spine IMPRESSION: Single viable intrauterine . Limited anatomy as noted above.
== END | disposition home or self-care (01) ==
LOC: RADUSWWP 16:10
PROVIDERS: ATTEND Obstetrics & Gynecology
DX: O36.62X0 Maternal care for excessive fetal growth, second trimester, not applicable or unspecified (principal); Z3A.22 22 weeks gestation of pregnancy
CPT/HCPCS: 76811

== ENCOUNTER → 2023-10-01 | Outpatient (CLI) | payer MEDICAID ==
[2023-10-01 16:24] LABS: HGB 11.9 d/dL (12.0-15.0); MCHC 33.1 d/dL (32.0-37.0); MCV 99.7 FL (80.0-97.0); Mean Platelet Volume 11.4 FL (9.5-12.2); NRBC Per 100 WBC 0 X 10*3/uL (0.00-0.01); Platelet Count 224 X 10*3/uL (140-440); RBC 3.61 X 10*6/uL (4.10-5.20); RDW 13.6 % (11.5-14.5); WBC 7.72 X 10*3/uL (4.50-10.00)
== END | disposition home or self-care (01) ==
LOC: LABWHC1 09:00
PROVIDERS: ATTEND Obstetrics & Gynecology
DX: Z34.82 Encounter for supervision of other normal pregnancy, second trimester (principal); Z3A.00 Weeks of gestation of pregnancy not specified
CPT/HCPCS: 36415; 82950; 85027

== ENCOUNTER → 2023-10-07 | Outpatient (CLI) | payer MEDICAID | END | disposition home or self-care (01) | LOC: LABWHC1 08:17 | PROVIDERS: ATTEND Obstetrics & Gynecology | DX: O24.419 Gestational diabetes mellitus in pregnancy, unspecified control (principal); Z3A.00 Weeks of gestation of pregnancy not specified | CPT/HCPCS: 36415; 82951; 82952 ==

== ENCOUNTER → 2023-12-10 | Outpatient (CLI) | payer MEDICAID ==
--- NOTE | 2023-12-10 18:11 | US ---
EXAMINATION TYPE: US OB >= 14 wk fetus DATE OF EXAM: 12/10/2023 COMPARISON: None CLINICAL INDICATION: Female, 23 years old with history of O36.63X0 MATERNAL CARE FOR EXCESS TONI WH; TECHNIQUE: Transabdominal (TA) GESTATIONAL AGE / DATING Physician Established: (35 weeks/0 days) EDC: 01/14/24 Dates by First Scan: ( weeks/ days) EDC: Dates by Current Scan: (34 weeks/0 days) EDC: 01/21/24 Beta HCG (if available): Not available at this time SURVEY IUP: Single PLACENTA: Fundal PREVIA: No Previa BON: 14.0 cm Normal CERVICAL LENGTH (transabdominal: norm > 3.0cm): 3.15 cm BIOMETRY PRESENTATION: Breech LIE: Oblique BPD: 8.64 cm 34 weeks / 6 days HC: 28.84 cm 31 weeks / 6 days AC: 31.05 cm 35 weeks / 0 days FL: 6.65 cm 34 weeks / 2 days ESTIMATED WEIGHT IN GRAMS: 2423 grams ESTIMATED WEIGHT IN LBS/OZ: 5 lbs. 5 oz. WEIGHT PERCENTAGE BASED ON ESTABLISHED DATES: 30% HC/AC: 0.93 Normal FL/AC: 21 Normal HEART RATE: 153 bpm RHYTHM: Normal IMPRESSION: 1. Single intrauterine gestation estimated at 34 weeks 0 days gestation based on current ultrasound m easurements. Cardiac activity measures 153 bpm. Estimated weight is 2423 g.
== END | disposition home or self-care (01) ==
LOC: RADUSWWP 15:23
PROVIDERS: ATTEND Obstetrics & Gynecology
DX: O36.63X0 Maternal care for excessive fetal growth, third trimester, not applicable or unspecified (principal); Z3A.34 34 weeks gestation of pregnancy
CPT/HCPCS: 76805

== ENCOUNTER → 2023-12-17 | Outpatient (CLI) | payer MEDICAID ==
--- NOTE | 2023-12-17 14:04 | US ---
EXAMINATION TYPE: US OB >= 14 wk fetus DATE OF EXAM: 12/17/2023 COMPARISON: None CLINICAL INDICATION: Female, 23 years old with history of O32.1XX0 MATERNAL CARE FOR BREECH PRESENTAT ION, UN; 36 week growth and positioning, baby has been breech TECHNIQUE: OBTA GESTATIONAL AGE / DATING Physician Established: (36 weeks/0 days) EDC: 01/14/2024 Dates by LMP: (36 weeks/0 days) EDC: 01/14/2024 Dates by First Scan: (35 weeks/3 days) EDC: 01/18/2024 Dates by Current Scan: (34 weeks/5 days) EDC: 01/23/2024 SURVEY IUP: Single PLACENTA: anterior-fundal PREVIA: No Previa BON: 20.1 cm Normal CERVICAL LENGTH (transabdominal: norm > 3.0cm): 3.3 cm BIOMETRY PRESENTATION: Breech LIE: Longitudinal BPD: 8.5 cm 34 weeks / 3 days HC: 30.9 cm 34 weeks / 5 days AC: 32.5 cm 36 weeks / 4 days FL: 6.4 cm 33 weeks / 0 days ESTIMATED WEIGHT IN GRAMS: 2604 grams ESTIMATED WEIGHT IN LBS/OZ: 5 lbs. 12 oz. WEIGHT PERCENTAGE BASED ON ESTABLISHED DATES: 28% (versus 30% on 12/10/2023) HC/AC: 0.9 Normal FL/AC: 20 Normal HEART RATE: 155 bpm RHYTHM: Normal IMPRESSION: 1. Single live intrauterine with estimated gestational age of 36 weeks [address] [facility] smaller but concordant at 34 weeks 5 days. [address] the child a t the 28th percentile for weight (versus 30% on 12/10/2023). 2. BON at the upper limits of normal at 20.1 cm. Follow-up as clinically indicated. 3. Breech presentation. Anterior placenta. No placenta previa.
== END | disposition home or self-care (01) ==
LOC: RADUSWWP 10:12
PROVIDERS: ATTEND Obstetrics & Gynecology
DX: O32.1XX0 Maternal care for breech presentation, not applicable or unspecified (principal); Z3A.36 36 weeks gestation of pregnancy
CPT/HCPCS: 76805

== ENCOUNTER 2023-12-28 21:16 | Outpatient (CLI) | payer MEDICAID ==
[2023-12-28 23:38] VITALS: BP 121/67; PULSE 82; RESP 16; TEMP 97.7
--- NOTE | 2024-01-02 02:55 | P.MSEPDOC ---
Presenting Problems - Arrival Data Date of Arrival on Unit: 12/28/23 Time of Arrival on Unit: 21:16 Mode of Transport: Wheelchair - Complaint OB-Reason for Admission/Chief Complaint: Possible Onset of Labor Comment: pt arrives to triage for contractions about 5 mins apart at home. Medical History - Information : 2 Para: 0 Term: 0 : 0 Abortions: Spontaneous or Elective: 0 Number of Living Children: 0 - Gestational Age Gestational Age by CASSIUS (wks/days): 37 Weeks and 4 Days Review of Systems - Review of Systems Constitutional: No problems Breast: No problems ENT: No problems Cardiovascular: No problems Respiratory: No problems Gastrointestinal: No problems Genitourinary: No problems Musculoskeletal: No problems Neurological: No problems Skin: No problems Vital Signs - Temperature Temperature: 97.7 F Temperature Source: Oral - Pulse Pulse Oximetery Pulse Rate: 82 Pulse Assessment Method: Pulse Oximetry - Respirations Respiratory Rate: 16 Oxygen Delivery Method: Room Air O2 Sat by Pulse Oximetry: 96 - Blood Pressure Right Arm Blood Pressure: 121/67 Blood Pressure Mean: 85 Blood Pressure Source: Automatic Cuff Medical Screen Scoring - Cervical Exam Dilation (cm): 1 Membranes: Intact - Uterine Contractions Frequency From (mins): 5 Frequency To (mins): 8 Duration From (seconds): 40 Duration To (seconds): 60 Intensity: Mild Resting: Soft to palpation - Assessment - Baby A Baseline FHR: 140 Heart Rate - NICHD Category: Category I (Normal) NST: Reactive Physician Notification - Physician Notified Physician Notified Date: 12/28/23 Physician Notified Time: 22:38 Physician: Danielle Jean Order Received: Yes (d/c pt home) Maternal Triage Index - Maternal Triage Index Presenting for scheduled procedure w/no complaint: No - Stat/Priority 1 Stat Priority 1: No - Urgent/Priority 2 Urgent Priority 2: No - Prompt/Priority 3 Prompt Priority 3: No - Non-Urgent/Priority 4 Non-Urgent Priority 4: Yes Criteria Met for Priority 4: pt complaining of contractions. states baby is breech. SVE and no change within an hour Disposition - Disposition OB Disposition: Discharge to home Discharge Date: 12/28/23 Discharge Time: 22:45 I agree with the RN Medical Screening Exam: Yes Case reviewed; plan agreed upon as documented in EMR&OBIX.: Yes Diagnosis: FALSE LABOR AT OR AFTER 37 COMPLETED WEEKS OF GESTATION
== END 2023-12-28 22:45 ==
LOC: FBPOP 21:16
PROVIDERS: ATTEND Obstetrics & Gynecology
DX: O47.1 False labor at or after 37 completed weeks of gestation (principal); Z3A.37 37 weeks gestation of pregnancy
CPT/HCPCS: 59025; 99213

== ENCOUNTER → 2024-01-02 | Outpatient (CLI) | payer MEDICAID ==
--- NOTE | 2024-01-02 17:18 | US ---
EXAMINATION TYPE: US OB >= 14 wk fetus DATE OF EXAM: 01/02/2024 COMPARISON: 12/17/2023 CLINICAL INDICATION: Female, 23 years old with history of O32.1XX2 MATERNAL CARE FOR BREECH PRESENTAT ION, FE; Growth ultrasound, position TECHNIQUE: Transabdominal (TA) GESTATIONAL AGE / DATING Physician Established: Not yet established Dates by LMP: (38 weeks/2 days) EDC: 01/14/2024 Dates by First Scan: (38 weeks/2 days) EDC: 01/14/2024 Dates by Current Scan: (35 weeks/4 days) EDC: 02/02/2024 SURVEY IUP: Single PLACENTA: Fundal PREVIA: No Previa BON: 9.8 cm Normal CERVICAL LENGTH (transabdominal: norm > 3.0cm): Unable to visualize due to size and position BIOMETRY PRESENTATION: Breech LIE: Longitudinal BPD: 8.8 cm 35 weeks / 3 days HC: 31.3 cm 35 weeks / 1 days AC: 33.0 cm 37 weeks / 0 days FL: 6.7 cm 34 weeks / 4 days ESTIMATED WEIGHT IN GRAMS: 2806 grams ESTIMATED WEIGHT IN LBS/OZ: 6 lbs. 3 oz. WEIGHT PERCENTAGE BASED ON ESTABLISHED DATES: % HC/AC: 0.95 Normal FL/AC: 77% Normal HEART RATE: 142 bpm RHYTHM: Normal IMPRESSION: Single viable intrauterine in breech presentation.
== END | disposition home or self-care (01) ==
LOC: RADUSWWP 14:48
PROVIDERS: ATTEND Obstetrics & Gynecology
DX: O32.1XX0 Maternal care for breech presentation, not applicable or unspecified (principal); Z3A.39 39 weeks gestation of pregnancy
CPT/HCPCS: 76805

== ENCOUNTER 2024-01-09 05:50 | Inpatient (IN) | payer MEDICAID, BC ==
--- NOTE | 2024-01-08 20:02 | P.HPOB ---
History of Present Illness H&P Date: 01/08/24 Chief Complaint: Breech presentation This is a 23-year-old female 2 para 0 with an estimated date of confinement of 01/14/2024, estimated gestational age of 39-2/7 weeks, who presents to labor and delivery for scheduled primary section due to breech presentation. Her last ultrasound on January 02 showed a fetus in the breech presentation with an estimated weight of 6 pounds 3 ounces or 77th percentile and amniotic fluid index of 9.6 cm. She admits to good movement and does feel irregular contractions. course has been complicated by hyperemesis at the beginning of her and she has continued with nausea and vomiting throughout her but it has been fairly well-controlled with daily Reglan and Zofran currently. She did also have an elevated 1 hour Glucola but she checked her sugars with a glucose monitor for a couple weeks and all of her levels were within normal range. labs: Toxoplasma-negative Random glucose-72 Hemoglobin-14.4 Hepatitis B surface antigen-nonreactive Hepatitis C antibody-nonreactive Rubella-immune Syphilis antibody-nonreactive HIV-nonreactive Trichomonas-negative Blood type-A+ Antibody screen-negative 1 hour Glucola-157 Group B streptococcus-negative Obstetrical history: G2, P0. History of 1 miscarriage. Gynecologic history: No history of sexually transmitted diseases. Social history: She is . She works as a RN in the emergency room. Review of Systems Constitutional: Denies chills, Denies fever Eyes: denies blurred vision, denies pain Ears, nose, mouth and throat: Denies headache, Denies sore throat Cardiovascular: Denies chest pain, Denies shortness of breath Gastrointestinal: Reports abdominal pain (Irregular contractions), Reports nausea Genitourinary: Reports pelvic pain, Reports Musculoskeletal: Reports low back pain Integumentary: Denies pruritus, Denies rash Neurological: Denies numbness, Denies weakness Psychiatric: Denies anxiety, Denies depression Past Medical History Past Medical History: Asthma, GERD/Reflux Additional Past Medical History / Comment(s): PCOS- has not used metformin > 5 months, nausea with pregancy, mild lower leg swelling History of Any Multi-Drug Resistant Organisms: None Reported Past Surgical History: No Surgical Hx Reported Additional Past Surgical History / Comment(s): left breast lump removal, wisdom teeth removed Past Anesthesia/Blood Transfusion Reactions: Postoperative Nausea & Vomiting (PONV) Past Psychological History: No Psychological Hx Reported Smoking Status: Never smoker Past Alcohol Use History: None Reported Past Drug Use History: None Reported - Past Family History Mother Family Medical History: Hypertension Medications and Allergies Home Medications Medication Instructions Recorded Confirmed Type Metoclopramide [Reglan] 10 mg PO DAILY 06/16/23 01/08/24 History Ondansetron [Zofran] 4 mg PO DAILY 12/28/23 01/02/24 History Vit No.179/Iron/Folic 1 tab PO DAILY 12/28/23 01/02/24 History [ Tablet] Otc Tums 1 tab PO DIRECTED PRN 01/02/24 01/02/24 History Unk Albuterol Inhaler 1 puff INHALATION DIRECTED PRN 01/02/24 01/02/24 History Allergies Allergy/AdvReac Type Severity Reaction Status Date / Time No Known Allergies Allergy Verified 01/02/24 15:41 Exam Osteopathic Statement: *. No significant issues noted on an osteopathic structural exam other than those noted in the History and Physical/Consult. HEENT: Within normal limits Heart: Regular rate and rhythm Lungs: Clear to auscultation bilaterally Abdomen: Cervix: 1-1/2 cm / 60%/-1 station heart tones: 140s by Doppler Extremities: Negative Homans Assessment and Plan (1) 39 weeks gestation of Status: Acute Code(s): Z3A.39 - 39 WEEKS GESTATION OF SNOMED Code(s): 99104086 (2) Breech presentation Status: Acute Code(s): O32.1XX0 - MATERNAL CARE FOR BREECH PRESENTATION, UNSP SNOMED Code(s): 8576690 Plan: Proceed with primary low-transverse section. I have discussed the risks, benefits, and alternative therapies for the above- mentioned procedure and for both sedation/anesthesia as well as necessary blood products administration, if indicated, as they pertain to this patient. The patient has indicated her understanding and acceptance of the risks and procedures discussed.
[2024-01-09] MEDS ORDERED: LIDOCAINE 1% (10MG/ML) FOR IV START INTRADERMA PRN (06:13)
[2024-01-09] MEDS ORDERED: miSOPROStoL 200 MCG TAB PO PRN (06:13)
[2024-01-09] MEDS ORDERED: TRANEXAMIC 1,000 MG/100ML-NACL 1,000 MG in EMPTY BAG 1 BAG IV PRN (06:13)
[2024-01-09] MEDS ORDERED: METHYLERGONOVINE 0.2 MG/ML 1 ML AMP IM PRN (06:13)
[2024-01-09] MEDS ORDERED: OXYTOCIN 10 UNIT/ML 1 ML VIAL IM PRN (06:13)
[2024-01-09] MEDS ORDERED: CARBOPROST TROMETHAMINE 250 MCG/ML 1 ML AMP IM PRN (06:13)
[2024-01-09 06:32] LABS: Basophils % (A) 0 %; Eosinophils # (A) 0.2 k/uL (0-0.7); Eosinophils % (A) 1 %; HCT 36.3 % (34.0-46.0); HGB 12.4 gm/dL (11.4-16.0); Lymphocytes # (A) 2.2 k/uL (1.0-4.8); Lymphocytes % (A) 19 %; MCH 33.5 pg (25.0-35.0); MCHC 34.1 g/dL (31.0-37.0); MCV 98.3 fL (80.0-100.0); Mean Platelet Volume 9.3; Monocytes # (A) 0.6 k/uL (0-1.0); Monocytes % (A) 5 %; Neutrophils # (A) 8.7 k/uL (1.3-7.7); Neutrophils % (A) 73 %; Platelet Count 177 k/uL (150-450); RBC 3.69 m/uL (3.80-5.40); WBC 11.9 k/uL (3.8-10.6)
[2024-01-09] MEDS: LACTATED RINGERS 1,000 ML IV SCH (06:44)
[2024-01-09] MEDS: CITRIC ACID-SODIUM CITRATE 15 ML CUP PO ONE (07:11)
[2024-01-09] MEDS: LACTATED RINGERS 1,000 ML IV ONE (07:13)
[2024-01-09] MEDS ORDERED: OXYTOCIN 30 UNITS/500 ML NS BAG IV ONE (07:55)
[2024-01-09] MEDS ORDERED: PHENYLEPHRINE 10 MG/ML VIAL ONE (07:55)
[2024-01-09] MEDS ORDERED: KETOROLAC 15 MG/ML 1 ML VIAL ONE (07:55)
[2024-01-09] MEDS ORDERED: ONDANSETRON 4 MG/2 ML VIAL ONE (07:55)
[2024-01-09] MEDS ORDERED: MORPHINE SULFATE (PF) 0.3 MG/0.3 ML SYR ONE (07:55)
--- NOTE | 2024-01-09 08:37 | P.OP ---
Date of Procedure: 01/09/24 Preoperative Diagnosis: 1. Intrauterine at 39-2/7 weeks. 2. Breech presentation. Postoperative Diagnosis: Same Procedure(s) Performed: Primary low transverse section Anesthesia: spinal (Duramorph) Surgeon: Danielle Jean Steel Fixer #1: Jitendra Uriarte Estimated Blood Loss (ml): 400 Pathology: none sent Condition: stable Disposition: floor Indications for Procedure: This is a 23-year-old female 2 para 0 at 39-2/7 weeks who presented for primary section due to breech presentation. I have discussed the risks, benefits, and alternative therapies for the above- mentioned procedure and for both sedation/anesthesia as well as necessary blood products administration, if indicated, as they pertain to this patient. The patient has indicated her understanding and acceptance of the risks and procedures discussed. Operative Findings: A viable female is noted in the footling breech presentation with scores of 9 at 1 minute and 9 at 5 minutes and weight of 6 lbs. 10 oz. N ormal uterus tubes and ovaries are noted. Description of Procedure: The patient is taken to the operating room where she is placed in the dorsal supine position with leftward tilt after spinal Duramorph anesthesia is given. She is prepped and draped in the normal sterile fashion. Skin was tested and found to be adequately anesthetized. A Pfannenstiel skin incision was made with a scalpel. A second knife was used to carry the incision down to the underlying layer of fascia. The fascia was nicked in the midline with a scalpel and then extended laterally bilaterally with Leal scissors. The anterior lip of the fascia was grasped with 2 Hoa clamps and then dissected off the underlying rectus muscle in the midline with Leal scissors. The inferior aspect of the fascial incision was grasped with 2 Hoa clamps and dissected off the underlying rectus muscle and the midline with Leal scissors. Next the peritoneum layer was tented up with 2 hemostats and then entered sharply with the scalpel. The incision is extended superiorly and inferiorly with Metzenbaum scissors. Next a DeLee retractor is placed. The vesicouterine peritoneum is entered sharply with Metzenbaum scissors and extended laterally bilaterally with Metzenbaum scissors and then the bladder flap is pushed inferiorly. The lower uterine segment is incised in transverse fashion with the scalpel and then bluntly entered with a hemostat. Clear fluid is noted. The incision was then extended laterally bilaterally with 2 fingers. Next the infant's feet and buttocks are delivered through the incision. The trunk followed by each arm in a flexed position followed by the head in a flexed position was delivered. Nose and mouth are bulb suctioned. Cord is clamped and cut. Infant is taken to warmer by nursing staff. Uterine fundus is gently massaged and placenta is delivered manually. Uterus is exteriorized and cleared of all clots and debris. Uterine incision is closed with 0 Vicryl suture in a running locked fashion. A second layer of 0 Vicryl suture is used in a running fashion for hemostasis. Once adequate hemostasis as assured, the vesicouterine peritoneum is reapprox imated with 2-0 Vicryl suture in a running fashion. Posterior cul-de-sac is suctioned of all clots and debris. Uterus is returned to the abdomen. Incision is noted to be hemostatic. Peritoneal layer is closed with 0 Vicryl suture in a running fashion. Muscle layer is reapproximated with 0 Vicryl suture in interrupted fashion. Fascia layer is then closed with 0 PDS suture with 2 sutures meeting in the midline and the knots buried in either side and in the midline. The subcutaneous tissue was then closed with 2-0 Vicryl suture. Skin layer was then closed with heather. All sponge and needle counts are correct. The patient is taken to recovery room in stable condition.
[2024-01-09] MEDS ORDERED: diphenhydrAMINE 50 MG/ML 1 ML VIAL IVP PRN (08:48)
[2024-01-09] MEDS ORDERED: HYDROmorphone 1 MG/ML 1 ML SYRINGE IVP PRN (08:48)
[2024-01-09] MEDS ORDERED: diphenhydrAMINE 25 MG CAP PO PRN (08:48)
[2024-01-09] MEDS ORDERED: ONDANSETRON 4 MG/2 ML VIAL IVP PRN (08:48)
[2024-01-09] MEDS ORDERED: ZOLPIDEM 5 MG TAB PO PRN (08:48)
[2024-01-09] MEDS ORDERED: HYDROmorphone 0.5 MG/0.5 ML SYRINGE IVP PRN (08:48)
[2024-01-09] MEDS ORDERED: diphenhydrAMINE 50 MG CAP PO PRN (08:48)
[2024-01-09] MEDS ORDERED: SIMETHICONE 80 MG CHEWABLE PO PRN (08:48)
[2024-01-09] MEDS ORDERED: NALOXONE 0.4 MG/ML 1 ML VIAL IV PRN (08:48)
[2024-01-09] MEDS: SENNOSIDES-DOCUSATE SODIUM 1 EACH TAB PO SCH (09:24)
[2024-01-09] MEDS: METOCLOPRAMIDE 5 MG/ML 2 ML VIAL IVP PRN (09:43)
[2024-01-09 10:08] LABS: Glucose,Whole Blood 71 mg/dL (70-110)
[2024-01-09] MEDS: diphenhydrAMINE 50 MG/ML 1 ML VIAL IVP PRN (10:36)
[2024-01-09] MEDS: OXYTOCIN 30 UNITS/500 ML NS 30 UNIT in SALINE 1 500ML.BAG IV SCH (10:40)
[2024-01-09] MEDS: ACETAMINOPHEN IV (For NPO) 1,000 MG in EMPTY BAG 1 BAG IVPB SCH (11:13)
[2024-01-09] MEDS: ACETAMINOPHEN TAB 500 MG TAB PO SCH (11:13)
[2024-01-09] MEDS: KETOROLAC 15 MG/ML 1 ML VIAL IVP SCH (14:08)
[2024-01-09] MEDS: IBUPROFEN 600 MG TAB PO SCH (14:11)
[2024-01-10 06:03] LABS: Basophils # (A) 0.1 k/uL (0-0.2); Basophils % (A) 0 %; Eosinophils # (A) 0.2 k/uL (0-0.7); Eosinophils % (A) 1 %; HCT 31.5 % (34.0-46.0); HGB 10.6 gm/dL (11.4-16.0); Lymphocytes # (A) 1.8 k/uL (1.0-4.8); Lymphocytes % (A) 14 %; MCH 33.7 pg (25.0-35.0); MCHC 33.5 g/dL (31.0-37.0); MCV 100.5 fL (80.0-100.0); Macrocytosis Slight; Mean Platelet Volume 9.4; Monocytes # (A) 0.7 k/uL (0-1.0); Monocytes % (A) 5 %; Neutrophils # (A) 10.2 k/uL (1.3-7.7); Neutrophils % (A) 78 %; Platelet Count 135 k/uL (150-450); RBC 3.14 m/uL (3.80-5.40); RDW 14.1 % (11.5-15.5)
--- NOTE | 2024-01-10 07:04 | P.PNOBGPC ---
Subjective - Subjective Patient reports: Reports appetite normal, Reports voiding normally, Reports pain well controlled, Reports ambulating normally : doing well Objective - Vital Signs Latest vital signs: Vital Signs Temp Pulse Resp BP Pulse Ox 01/10/24 04:00 98.2 F 74 16 103/59 01/10/24 00:00 98.4 F 67 16 108/57 01/09/24 20:00 98.0 F 75 16 108/79 01/09/24 16:00 98.4 F 69 16 136/80 01/09/24 12:17 98.7 F 78 16 122/73 98 01/09/24 10:49 88 16 115/72 99 01/09/24 10:34 75 16 120/71 98 01/09/24 10:19 65 16 120/71 98 01/09/24 10:04 97.2 F L 75 16 124/58 97 01/09/24 09:49 73 16 117/61 97 01/09/24 09:34 62 16 119/61 97 01/09/24 09:18 64 16 127/79 98 01/09/24 09:04 64 16 108/60 01/09/24 08:49 97.8 F 75 16 109/58 99 Intake and Output 01/09/24 01/10/24 01/10/24 22:59 06:59 14:59 Output Total 400 800 Balance -400 -800 Output: Urine 400 800 Uretheral (Gomez) 400 300 - Exam Lungs: bilateral: normal Chest: Normal S1, Normal S2 Extremities: Present: normal Abdomen: Present: normal appearance, soft. Absent: distention, tenderness Incision: Present: normal, dry, intact Uterus: Present: normal, firm - Labs Labs: Abnormal Lab Results - Last 24 Hours (Table) 01/10/24 Range/Units 05:30 WBC 13.0 H (3.8-10.6) k/uL RBC 3.14 L (3.80-5.40) m/uL Hgb 10.6 L (11.4-16.0) gm/dL Hct 31.5 L (34.0-46.0) % MCV 100.5 H (80.0-100.0) fL Plt Count 135 L (150-450) k/uL Neutrophils # 10.2 H (1.3-7.7) k/uL Assessment and Plan Assessment: Postoperative day #1. Patient is resting without complaints. Vital signs are stable and she is afebrile. Uterus is firm nontender and her incision is intact and dry. CBC today shows a hemoglobin of 10.6. Patient is tolerating liquid diet. Plan today is to advance her diet, encourage ambulation, allow the patient to shower, continue routine postoperative care (1) delivery delivered Current Visit: Yes Status: Acute Code(s): O82 - ENCOUNTER FOR DELIVERY WITHOUT INDICATION SNOMED Code(s): 091293707
[2024-01-10] MEDS: PRENATAL VIT-IRON-FOLIC ACID 1 EACH TABLET PO SCH (11:31)
--- NOTE | 2024-01-10 15:22 | P.PN ---
Progress Note - Text Progress Note Date: 01/10/24 Postoperative day 1 status post section under spinal anesthesia, and intrathecal morphine given for postoperative analgesia, patient doing well, there is no anesthesia related complications, Patient had no headache, vital signs stable , Assessment and plan= postop day 1 status post , doing well there is no anesthesia related complication.
[2024-01-11 01:31] VITALS: RESP 16
--- NOTE | 2024-01-11 06:58 | P.PNOBGPC ---
Subjective - Subjective Patient reports: Reports appetite normal, Reports voiding normally, Reports pain well controlled, Reports ambulating normally : doing well Objective - Vital Signs Latest vital signs: Vital Signs Temp Pulse Resp BP Pulse Ox 01/11/24 00:00 98.3 F 70 16 118/75 01/10/24 16:00 98.8 F 81 18 113/73 98 01/10/24 08:00 98.5 F 75 16 98 Intake and Output 01/10/24 01/10/24 01/11/24 14:59 22:59 06:59 Output Total 400 Balance -400 Output: Urine 400 Other: Voiding Method Toilet Toilet # Voids 1 1 2 - Exam Lungs: bilateral: normal Chest: Normal S1, Normal S2 Extremities: Present: normal Abdomen: Present: normal appearance, soft. Absent: distention, tenderness Incision: Present: normal, dry, intact Uterus: Present: normal, firm Assessment and Plan Assessment: Postoperative day #2. Patient is resting without complaints and wishes to go home. Vital signs are stable she's afebrile. Uterus is firm nontender and her incision is intact and dry. She is tolerating regular diet, urinating, and ambulating without difficulty. Plan today is to continue routine care discharge home later today. (1) delivery delivered Current Visit: Yes Status: Acute Code(s): O82 - ENCOUNTER FOR DELIVERY WITHOUT INDICATION SNOMED Code(s): 650107123
--- NOTE | 2024-01-11 07:00 | P.DS ---
Providers Date of admission: 01/09/24 05:50 Expected date of discharge: 01/11/24 Attending physician: Danielle Jean Primary care physician: Stated None - Discharge Diagnosis(es) (1) delivery delivered Current Visit: Yes Status: Acute Hospital Course: Please see dictated H&P and operative note on this patient's admission. In brief summary this is a pleasant 23-year-old 2 para 0 female 39-2/7 weeks who is admitted to labor and delivery for elective primary section secondary to persistent breech presentation. Patient undergoes above- named surgery for viable female . Please see dictated operative note. Postoperative patient does well and on postoperative #2 silk be stable for discharge home follow up with Dr. Flores in 1 week. Procedures: Primary low transverse section Patient Condition at Discharge: Good Plan - Discharge Summary Discharge Rx Participant: No New Discharge Prescriptions: New oxyCODONE HCL [OxyIR] 5 mg PO Q4HR PRN #7 tab PRN Reason: Pain Scale 4 - 6 Ibuprofen [Motrin] 600 mg PO Q6H #60 tab Continue Vit No.179/Iron/Folic [ Tablet] 1 tab PO DAILY No Action Metoclopramide [Reglan] 10 mg PO DAILY Ondansetron [Zofran] 4 mg PO DAILY Discharge Medication List Vit No.179/Iron/Folic [ Tablet] 1 tab PO DAILY 12/28/23 [History] Ibuprofen [Motrin] 600 mg PO Q6H #60 tab 01/09/24 [Rx] Metoclopramide [Reglan] 10 mg PO DAILY 01/09/24 [History] Ondansetron [Zofran] 4 mg PO DAILY 01/09/24 [History] oxyCODONE HCL [OxyIR] 5 mg PO Q4HR PRN #7 tab 01/09/24 [Rx] Follow up Appointment(s)/Referral(s): Danielle Jean DO [Doctor of Osteopathic Medicine] - 1 Week (PO 01/16/2024 @11:30 Am PP 02/18/2024 @9:00 Am) Activity/Diet/Wound Care/Special Instructions: Instructions 1. Do not begin any exercise program for 3 weeks. 2. Do not resume sexual relations for 3 weeks or longer if uncomfortable. 3. You may take tub baths or showers at any time. 4. You may use tampons if desired after 3 weeks. 5. Keep the area of episiotomy (stitches) clean and dry. 6. If you are not nursing, wear a good fitting, supportive bra during the day and limit fluid intake for at least 1 week to prevent breast engorgement. 7. Call the office, [phone], within the next week to make appointment for your 6 week checkup if it has not already been made. 8. Report any of the following occurrences to the doctor promptly: a. Heavy, excessive bleeding b. Chills, fever c. Burning or frequency of urination d. Pain or redness and breasts if nursing e. Increasing pain or swelling in episiotomy (stitches). In addition to the above instructions, the following additional should be followed: 1. No heavy lifting or straining (exercising) until after 6 week checkup. 2. Keep abdominal incision clean and dry: You may wear a dressing if more comfortable. 3. Make office appointment for 10 days after going home or as instructed by her doctor. Discharge Disposition: HOME SELF-CARE
[2024-01-11 09:23] VITALS: BP 111/66; PULSE 73; TEMP 98
== END 2024-01-11 11:20 | disposition home or self-care (01) | DRG 788 ==
LOC: 4FBP 05:50
PROVIDERS: ADMIT Obstetrics & Gynecology; ATTEND Obstetrics & Gynecology
PROC: 10D00Z1 Extraction of Products of Conception, Low, Open Approach (ICD-10-PCS; principal; 2024-01-09 08:00)
DX: O32.1XX0 Maternal care for breech presentation, not applicable or unspecified (principal); Z37.0 Single live birth; Z3A.39 39 weeks gestation of pregnancy; O99.52 Diseases of the respiratory system complicating childbirth; J45.909 Unspecified asthma, uncomplicated; O99.62 Diseases of the digestive system complicating childbirth; K21.9 Gastro-esophageal reflux disease without esophagitis; J45.990 Exercise induced bronchospasm; Z79.899 Other long term (current) drug therapy
CPT/HCPCS: 85025; 86850; 86900; 86901

== ENCOUNTER → 2024-05-31 | Outpatient (CLI) | payer BC | END | disposition home or self-care (01) | LOC: LABWHC1 08:59 | PROVIDERS: ATTEND Internal Medicine | DX: E28.2 Polycystic ovarian syndrome (principal) | CPT/HCPCS: 36415; 82947; 83036 ==

== ENCOUNTER → 2025-03-10 | Outpatient (CLI) | payer BC | END | disposition home or self-care (01) | LOC: LABWHC1 15:01 | PROVIDERS: ATTEND Obstetrics & Gynecology Obstetrics | DX: O20.0 Threatened abortion (principal); Z3A.00 Weeks of gestation of pregnancy not specified | CPT/HCPCS: 36415; 83036; 84702; 86850; 86900; 86901 ==

== ENCOUNTER → 2025-03-12 | Outpatient (CLI) | payer BC | END | disposition home or self-care (01) | LOC: LABWHC1 10:51 | PROVIDERS: ATTEND Obstetrics & Gynecology Obstetrics | DX: O20.0 Threatened abortion (principal); Z3A.00 Weeks of gestation of pregnancy not specified | CPT/HCPCS: 36415; 83036; 84702 ==

== ENCOUNTER 2025-03-13 13:21 | Emergency (ER) | payer BC ==
[2025-03-13 13:29] VITALS: TEMP 98.5
--- NOTE | 2025-03-13 13:56 | ED ---
Female Urogenital HPI - General Chief complaint: Vaginal Bleeding Stated complaint: 7 weeks, bleeding Time Seen by Provider: 03/13/25 13:56 Source: patient, family, RN notes reviewed, old records reviewed Mode of arrival: ambulatory Limitations: no limitations - History of Present Illness Initial comments: 24-year-old G3, approximately 7 weeks gestation presenting to the ER for evaluation of vaginal bleeding. Patient reports her last menstrual cycle was January 10. Patient reports she is following up with Dr. Gee. Since patient was having light pink vaginal spotting. She states this continued through Friday and Friday until today she woke up and noticed a large amount of bright red blood. She also was noting vaginal clots. She does admit to mild lower abdominal cramping as well. Patient states today she feels mildly dizzy and lightheaded as well. She denies any fevers, chills, nausea, vomiting, urinary complaints or peripheral edema. Patient denies ever receiving Rhogam. - Related Data Home Medications Medication Instructions Recorded Confirmed Vit No.179/Iron/Folic 1 tab PO DAILY 12/28/23 01/09/24 [ Tablet] Metoclopramide [Reglan] 10 mg PO DAILY 01/09/24 01/09/24 Ondansetron [Zofran] 4 mg PO DAILY 01/09/24 01/09/24 Previous Rx's Medication Instructions Recorded Ibuprofen [Motrin] 600 mg PO Q6H #60 tab 01/09/24 oxyCODONE HCL [OxyIR] 5 mg PO Q4HR PRN #7 tab 01/09/24 Allergies Allergy/AdvReac Type Severity Reaction Status Date / Time No Known Allergies Allergy Verified 03/13/25 13:28 Review of Systems ROS Statement: Those systems with pertinent positive or pertinent negative responses have been documented in the HPI. ROS Other: All systems not noted in ROS Statement are negative. Past Medical History Past Medical History: Asthma, GERD/Reflux Additional Past Medical History / Comment(s): PCOS- has not used metformin > 5 months, nausea with pregancy, mild lower leg swelling History of Any Multi-Drug Resistant Organisms: None Reported Past Surgical History: No Surgical Hx Reported Additional Past Surgical History / Comment(s): left breast lump removal, wisdom teeth removed Past Anesthesia/Blood Transfusion Reactions: Postoperative Nausea & Vomiting (PONV) Past Psychological History: No Psychological Hx Reported Smoking Status: Never smoker Past Alcohol Use History: None Reported Past Drug Use History: None Reported - Past Family History Mother Family Medical History: Hypertension General Exam Limitations: no limitations General appearance: alert, in no apparent distress Respiratory exam: Present: normal lung sounds bilaterally. Absent: respiratory distress, wheezes, rales, rhonchi, stridor Cardiovascular Exam: Present: regular rate, normal rhythm, normal heart sounds. Absent: systolic murmur, diastolic murmur, rubs, gallop, clicks GI/Abdominal exam: Present: soft, normal bowel sounds. Absent: distended, tenderness, guarding, rebound, rigid Neurological exam: Present: alert, oriented X3, CN II-XII intact Skin exam: Present: warm, dry, intact, normal color. Absent: rash Course Vital Signs 03/13/25 03/13/25 13:25 16:44 Temperature 98.5 F 98.5 F Pulse Rate 68 65 Respiratory 17 16 Rate Blood Pressure 127/84 112/75 O2 Sat by Pulse 100 100 Oximetry Medical Decision Making - Medical Decision Making Was pt. sent in by a medical professional or institution (, PA, REAL ESTATE SITE ANALYST, urgent care, hospital, or snf...) When possible be specific @ -No Did you speak to anyone other than the patient for history (EMS, parent, family, police, friend...)? What history was obtained from this source @ -No Did you review nursing and triage notes (agree or disagree)? Why? @ -I reviewed and agree with nursing and triage notes Were old charts reviewed (outside hosp., previous admission, EMS record, old EKG, old radiological studies, urgent care reports/EKG's, snf records)? Report findings @ -Yes, I reviewed prior laboratory studies and hCGs from 03/10/25 and 03/12/25. Blood type O+. Differential Diagnosis (chest pain, altered mental status, abdominal pain women, abdominal pain men, vaginal bleeding, weakness, fever, dyspnea, syncope, headache, dizziness, GI bleed, back pain, seizure, CVA, palpatations, mental health, musculoskeletal)? @ -Differential Vaginal Bleeding:Spontaneous , threatened , molar , ectopic , bloody show, incompetent cervix, abruptioplacenta, placenta previa, uterine rupture, dysfunctional uterine bleeding, hemorrhage, uterine fibroids, this is not meant to be an all-inclusive list. EKG interpreted by me (3pts min.). @ -None done X-rays interpreted by me (1pt min.). @ -None done CT interpreted by me (1pt min.). @ -None done U/S interpreted by me (1pt. min.). @ - ultrasound showing no evidence of IUP. What testing was considered but not performed or refused? (CT, X-rays, U/S, labs)? Why? @ -None What meds were considered but not given or refused? Why? @ -None Did you discuss the management of the patient with other professionals (professionals i.e. Dr., PA, REAL ESTATE SITE ANALYST, lab, RT, psych nurse, social work supervisor, analytical lead, teacher, affirmative action officer, binder caser)? Give summary @ -No Was smoking cessation discussed for >3mins.? @ -No Was critical care preformed (if so, how long)? @ -No Were there social determinants of health that impacted care today? How? (Homelessness, low income, unemployed, alcoholism, drug addiction, trans portation, low edu. Level, literacy, decrease access to med. care, usp, rehab)? @ -No Was there de-escalation of care discussed even if they declined (Discuss DNR or withdrawal of care, Hospice)? DNR status @ -No What co-morbidities impacted this encounter? (DM, HTN, Smoking, COPD, CAD, Cancer, CVA, ARF, Chemo, Hep., AIDS, mental health diagnosis, sleep apnea, morbid obesity)? @ - Was patient admitted / discharged? Hospital course, mention meds given and route, prescriptions, significant lab abnormalities, going to OR and other pertinent info. @ -Discharge. 24-year-old G3, female approximately 7 weeks gestation presented the ER for evaluation of vaginal bleeding. Vitals with acceptable limits. Workup in the ER showing a stable hemoglobin of 12.9. Serum hCG 1202 which has decreased from --2024 at 1652. Urinalysis hemorrhagic likely contaminated from vaginal bleeding. ultrasound today showing no IUP this could represent early , ectopic or spontaneous . Patient will have to have repeat serial hCGs drawn in 48 hours, prescription given. RhoGAM not indicated as patient is blood type O+. Upon reevaluation, patient resting comfortably in stretcher no signs of acute distress. Results discussed with patient all questions answered. As patient has stable hemoglobin, stable vital signs and ability to follow-up closely with MACHINE OPERATOR H[employer] PICKER patient is stable for discharge. Instructions to have repeat hCGs drawn discussed with patient. Appropriate return and follow-up discussed. Patient discharged stable condition. Patient verbally expressed understanding agreement with care plan. Case discussed with ED attending, Dr. Renee. Undiagnosed new problem with uncertain prognosis? @ -No Drug Therapy requiring intensive monitoring for toxicity (Heparin, Nitro, Insulin, Cardizem)? @ -No Were any procedures done? @ -No Diagnosis/symptom? @ -Threatened Acute, or Chronic, or Acute on Chronic? @ -Acute Uncomplicated (without systemic symptoms) or Complicated (systemic symptoms)? @ -Uncomplicated Side effects of treatment? @ -No Exacerbation, Progression, or Severe Exacerbation? @ -No Poses a threat to life or bodily function? How? (Chest pain, [place], CO, pneumonia, PE, COPD, DKA, ARF, appy, cholecystitis, CVA, Diverticulitis, Homicidal, Suicidal, threat to staff... and all critical care pts) @ -No - Lab Data Result diagrams: 03/13/25 13:57 03/13/25 14:35 Lab Results 03/13/25 03/13/25 03/13/25 Range/Units 13:57 13:57 14:35 WBC 8.83 (4.50-10.00) 10*3/uL RBC 4.01 L (4.10-5.20) 10*6/uL Hgb 12.9 (12.0-15.0) g/dL Hct 38.1 (37.2-46.3) % MCV 95.0 (80.0-97.0) fL MCH 32.2 H (27.0-32.0) pg MCHC 33.9 (32.0-37.0) g/dL Plt Count 260 (140-440) 10*3/uL MPV 10.5 (9.5-12.2) fL Immature Gran % (Auto) 0.2 % Neutrophils % 65.8 % Lymphocytes % 22.5 % Monocytes % 9.9 % Eosinophils % 1.1 % Basophils % 0.5 % Immature Gran # 0.02 (0.00-0.04) 10*3/uL Neutrophils # 5.81 (1.80-7.70) 10*3/uL Lymphocytes # 1.99 (0.90-5.00) 10*3/uL Monocytes # 0.87 (0.20-1.00) 10*3/uL Eosinophils # 0.10 (0.04-0.35) 10*3/uL Basophils # 0.04 (0.00-0.10) 10*3/uL Sodium 138 (137-145) mmol/L Potassium 3.7 (3.5-5.1) mmol/L Chloride 107 (98-107) mmol/L Carbon Dioxide 21 L (22-30) mmol/L Anion Gap 10 mmol/L BUN 12 (7-17) mg/dL Creatinine 0.53 (0.52-1.04) mg/dL Est GFR (CKD-EPI)AfAm >90 (>60 ml/min/1.73 sqM) Est GFR (CKD-EPI)NonAf >90 (>60 ml/min/1.73 sqM) Glucose 92 (74-99) mg/dL Calcium 9.1 (8.4-10.2) mg/dL Total Bilirubin 0.3 (0.2-1.3) mg/dL AST 22 (14-36) U/L ALT 20 (4-34) U/L Alkaline Phosphatase 83 (38-126) U/L Total Protein 6.7 (6.3-8.2) g/dL Albumin 4.4 (3.5-5.0) g/dL HCG, Quant 1202.3 mIU/mL Urine Color Light Yellow Urine Appearance Clear (Clear) Urine pH 6.0 (5.0-8.0) Ur Specific [place] 1.012 (1.001-1.035) Urine Protein Trace H (Negative) Urine Glucose (UA) Negative (Negative) Urine Ketones Negative (Negative) Urine Blood Large H (Negative) Urine Nitrite Negative (Negative) Urine Bilirubin Negative (Negative) Urine Urobilinogen <2.0 (<2.0) mg/dL Ur Leukocyte Esterase Small H (Negative) Urine RBC >182 H (0-5) /hpf Urine WBC 18 H (0-5) /hpf Ur Squamous Epith Cells 1 (0-4) /hpf Urine Bacteria Rare H (None) /hpf Urine Mucus Rare H (None) /hpf - Radiology Data Radiology results: report reviewed, image reviewed Disposition Clinical Impression: Threatened Disposition: HOME SELF-CARE Condition: Stable Instructions (If sedation given, give patient instructions): Threatened Miscarriage (ED) Additional Instructions: Follow-up with Dr. Gee. Have repeat hcg drawn in 48 hours. Return to the ER for any new or worsening symptoms. Is patient prescribed a controlled substance at d/c from ED?: No Referrals: Lainey Handley MD [Primary Care Provider] - 1-2 days Shawnee Gee DO [Doctor of Osteopathic Medicine] - 1-2 days Time of Disposition: 16:09
[2025-03-13] MEDS: SODIUM CHLORIDE 0.9% 1,000 ML IV ONE (14:06)
[2025-03-13 14:07] LABS: Basophils # (A) 0.04 10*3/uL (0.00-0.10); Basophils % (A) 0.5 %; Eosinophils % (A) 1.1 %; HCT 38.1 % (37.2-46.3); HGB 12.9 g/dL (12.0-15.0); Lymphocytes # (A) 1.99 10*3/uL (0.90-5.00); Lymphocytes % (A) 22.5 %; MCH 32.2 pg (27.0-32.0); MCHC 33.9 g/dL (32.0-37.0); Mean Platelet Volume 10.5 fL (9.5-12.2); Monocytes # (A) 0.87 10*3/uL (0.20-1.00); Monocytes % (A) 9.9 %; Neutrophils # (A) 5.81 10*3/uL (1.80-7.70); Neutrophils % (A) 65.8 %; Platelet Count 260 10*3/uL (140-440); RBC 4.01 10*6/uL (4.10-5.20); RDW 13.1 % (11.5-14.5); WBC 8.83 10*3/uL (4.50-10.00)
[2025-03-13 14:25] LABS: Appearance,Urine Clear (Clear); Bacteria,Urine Rare /hpf; Bilirubin,Urine Negative (Negative); Blood,Urine Large (Negative); Color,Urine Light Yellow; Glucose,Urine (UA) Negative (Negative); Ketones,Urine Negative (Negative); Leukocyte Esterase,Urine Small (Negative); Mucus,Urine Rare /hpf; Nitrite,Urine Negative (Negative); Protein,Urine Trace (Negative); RBC,Urine >182 /hpf (0-5); Specific Gravity,Urine 1.012 (1.001-1.035); Squamous Epithelial Cell,Urine 1 /hpf (0-4); Urobilinogen,Urine <2.0 mg/dL (<2.0); WBC,Urine 18 /hpf (0-5)
[2025-03-13 14:56] LABS: ALT 20 U/L (4-34); AST 22 U/L (14-36); African American GFR (CKD) >90 (>60 ml/min/1.73 sqM); Albumin 4.4 g/dL (3.5-5.0); Alkaline Phosphatase 83 U/L (38-126); Anion Gap 10 mmol/L; Blood Urea Nitrogen 12 mg/dL (7-17); Calcium 9.1 mg/dL (8.4-10.2); Carbon Dioxide 21 mmol/L (22-30); Chloride 107 mmol/L (98-107); Glucose 92 mg/dL (74-99); Non-African American GFR(CKD) >90 (>60 ml/min/1.73 sqM); Potassium 3.7 mmol/L (3.5-5.1); Sodium 138 mmol/L (137-145); Total Bilirubin 0.3 mg/dL (0.2-1.3); Total Protein 6.7 g/dL (6.3-8.2)
[2025-03-13 15:12] LABS: HCG,Quantitative Serum 1202.3 mIU/mL
--- NOTE | 2025-03-13 15:43 | US ---
EXAMINATION TYPE: Transabdominal DATE OF EXAM: 03/13/2025 3:28 PM COMPARISON: NONE CLINICAL INDICATION: Female, 24 years old with history of vaginal clotting 7 weeks; TECHNIQUE: Transabdominal (TA) with grayscale and color Doppler imaging including first trimester pre gnancy. FINDINGS: EXAM MEASUREMENTS: GESTATIONAL AGE / DATING Physician Established: Not yet established Dates by LMP: (7 weeks/4 days) EDC: 10/26/2025 Dates by First Scan: No previous this is first scan Dates by Current Scan for: No IUP seen at this time MATERNAL ANATOMY Uterus: 8.5 x 3.9 x 3.9cm Right Ovary: 3.2 x 2.0 x 3.1cm Left Ovary: 2.9 x 1.9 x 2.0cm Post CDS / Adnexa: wnl Presence of free fluid: no Presence of corpus luteal cyst: not seen Presence of subchorionic bleed: no GESTATION / SURVEY IUP: No IUP seen at this time Date of LMP: 01/19/2025 Beta HcG (if available): 1202.3 IMPRESSION: 1. No evidence of intrauterine gestational sac in this patient with a positive B-hCG. This can be see n in early , ectopic and spontaneous . Follow up pelvic ultrasound in 5-7 days and serial beta hCG studies are recommended. [facility], , 03/13/2025 3:41 PM
[2025-03-13 16:47] VITALS: BP 112/75; PULSE 65; RESP 16
== END 2025-03-13 16:47 | disposition home or self-care (01) ==
LOC: EC 13:21
DX: O20.0 Threatened abortion (principal); Z3A.01 Less than 8 weeks gestation of pregnancy
CPT/HCPCS: 36415; 76801; 80053; 81001; 84702; 85025; 87086; 96360; 99284

== ENCOUNTER → 2025-03-15 | Outpatient (CLI) | payer BC | END | disposition home or self-care (01) | LOC: LABWHC1 15:10 | PROVIDERS: ATTEND Technician/Technologist | DX: O20.0 Threatened abortion (principal); Z3A.00 Weeks of gestation of pregnancy not specified | CPT/HCPCS: 36415; 84702 ==

== ENCOUNTER → 2025-03-21 | Outpatient (CLI) | payer BC | END | disposition home or self-care (01) | LOC: LABWHC1 16:00 | PROVIDERS: ATTEND Obstetrics & Gynecology Obstetrics | DX: Z00.00 Encounter for general adult medical examination without abnormal findings (principal); Z53.9 Procedure and treatment not carried out, unspecified reason | CPT/HCPCS: 36415; 84702 ==

== ENCOUNTER → 2025-03-29 | Outpatient (CLI) | payer BC | END | disposition home or self-care (01) | LOC: LABWHC1 15:15 | PROVIDERS: ATTEND Obstetrics & Gynecology Obstetrics | DX: O02.1 Missed abortion (principal) | CPT/HCPCS: 36415; 84702 ==

== ENCOUNTER → 2025-04-13 | Outpatient (CLI) | payer BC ==
[2025-04-13 18:39] LABS: T4, Free (Free Thyroxine) 0.9 ng/dL (0.80-1.80)
[2025-04-13 18:55] LABS: Prolactin 17.3 ng/mL (2.800-29.200)
== END | disposition home or self-care (01) ==
LOC: LABWHC1 14:53
PROVIDERS: ATTEND Obstetrics & Gynecology Obstetrics
DX: N96 Recurrent pregnancy loss (principal)
CPT/HCPCS: 36415; 83036; 84146; 84439; 84443

== ENCOUNTER → 2025-06-01 | Outpatient (CLI) | payer BC ==
[2025-06-01 15:38] LABS: T4, Free (Free Thyroxine) 1.04 ng/dL (0.80-1.80)
== END | disposition home or self-care (01) ==
LOC: LABWHC1 09:59
PROVIDERS: ATTEND Obstetrics & Gynecology Obstetrics
DX: M32.9 Systemic lupus erythematosus, unspecified (principal)
CPT/HCPCS: 36415; 83036; 84146; 84439; 84443; 84481